=== PATIENT | male | born 1980 | race Two or more races ===

== ENCOUNTER 2017-01-05 19:43 | Emergency (ER) | payer OTHER ==
[2017-01-05 19:51] VITALS: BP 136/78; PULSE 118; TEMP 98.1; BMI 27.3
--- NOTE | 2017-01-05 19:59 | PDOC ---
*Physical Exam - Vital Signs Last Vital Signs Temp Pulse Resp BP Pulse Ox 98.1 F 118 H 18 136/78 100 01/05/17 19:48 01/05/17 19:48 01/05/17 19:48 01/05/17 19:48 01/05/17 19:48 *DC/Admit/Observation/Transfer Diagnosis at time of Disposition: Dentalgia - Discharge Dispostion Disposition: HOME Condition at time of disposition: Stable - Prescriptions Prescriptions: Naproxen [Naprosyn -] 500 mg PO BID #10 tablet - Referrals Referrals: Gabriel Karimi MD [Primary Care Provider] -
[2017-01-05] MEDS ORDERED: KETOROLAC TROMETHAMINE 60 MG/2 ML VIAL IM ONE (20:03)
[2017-01-05] MEDS ORDERED: KETOROLAC TROMETHAMINE 60 MG/2 ML VIAL ONE (20:07)
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
== END 2017-01-05 20:19 | disposition home or self-care (01) ==
LOC: FER 19:43
PROC: 3E0233Z Introduction of Anti-inflammatory into Muscle, Percutaneous Approach (ICD-10-PCS; principal; 2017-01-05)
DX: K08.89 Other specified disorders of teeth and supporting structures (principal); F17.210 Nicotine dependence, cigarettes, uncomplicated
CPT/HCPCS: 96372; 99282-25

== ENCOUNTER 2017-01-26 06:42 | Emergency (ER) | payer OTHER ==
[2017-01-26 06:53] VITALS: BMI 27.3
--- NOTE | 2017-01-26 07:04 | PDOC ---
History of Present Illness - General Chief Complaint: Weakness Stated Complaint: WEAK AND DROWSY Time Seen by Provider: 01/26/17 06:59 History Source: Patient, Old Records Exam Limitations: No Limitations - History of Present Illness Initial Comments: 01/26/17 07:08 36-year-old male with no significant past medical history presents to the emergency Department with complaints of generalized weakness and drowsiness since this morning when he woke up. The patient says that he normally gets up at 5 AM and goes to the gym however this morning he was "unable to get out of bed" and slept for an additional hour. He has no other complaints. He was able to eat breakfast. He denies coughing, sneezing, runny nose, abdominal pain, nausea, vomiting, diarrhea, sore throat. The patient states that he got a flu shot this year and has had no sick contacts. Past History - Travel Traveled outside of the country in the last 30 days: No - Past Medical History Allergies/Adverse Reactions: Allergies Allergy/AdvReac Type Severity Reaction Status Date / Time No Known Allergies Allergy Verified 01/26/17 06:44 Home Medications: Ambulatory Orders No Home Medications 0 dose .ROUTE UTDICT 04/07/13 Anemia: No Asthma: No Cancer: No Cardiac Disorders: No Hx Myocardial Infarction: No CVA: No COPD: No CHF: No DVT: No Dementia: No Diabetes: No Dialysis: No GI Disorders: No Disorders: No HTN: No Hypercholesterolemia: No HIV: No Kidney Stones: No Liver Disease: No Psychiatric Problems: No Suicide Attempt (Hx): No Seizures: No Thyroid Disease: No Lung CA: No Other medical history: DENIES - Immunization History Immunization Up to Date: Yes - Psycho/Social/Smoking Cessation Hx Anxiety: No Suicidal Ideation: No Smoking Status: No Smoking History: Current every day smoker Have you smoked in the past 12 months: Yes Number of Cigarettes Smoked Daily: 20 Information on smoking cessation initiated: Yes 'Breaking Loose' booklet given: 12/29/16 Hx Alcohol Use: No Drug/Substance Use Hx: No Substance Use Type: None Hx Substance Use Treatment: No Review of Systems - Review of Systems Able to Perform ROS?: Yes Is the patient limited Turkish proficient: No Constitutional: Yes: Weakness HEENTM: No: Symptoms Reported, See HPI, Eye Pain, Blurred Vision, Tearing, Recent change in vision, Double Vision, Cataracts, Ear Pain, Ocular Prothesis, Ear Discharge, Nose Pain, Nose Congestion, Tinnitus, Nose Bleeding, Hearing Loss , Throat Pain, Throat Swelling, Mouth Pain, Dental Problems, Difficulty Swallowing, Mouth Swelling, Other Respiratory: No: Symptoms reported, See HPI, Cough, Orthopnea, Shortness of Breath, SOB with Exertion, SOB at Rest, Stridor, Wheezing, Productive cough, Hemoptysis, Other Cardiac (ROS): No: Symptoms Reported, See HPI, Chest Pain, Edema, Irregular Heart Rate, Lightheadedness, Palpitations, Syncope, Chest Tightness, Other ABD/GI: No: Symptoms Reported, See HPI, Abdominal Distended, Abd. Pain w/ defecation, Blood Streaked Bowels, Constipated, Diarrhea, Difficulty Swallowing , Nausea, Poor Appetite, Poor Fluid Intake, Rectal Bleeding, Vomiting, Indigestion, Abdominal cramping, Tarry Stools, Other : No: Symptoms Reported, See HPI, Burning, Dysuria, Discharge, Frequency, Flank Pain, Hematuria, Incontinence, Pain, Urgency, Testicular Mass, Testicular Swelling, Lesions, Testicular Pain, Other Musculoskeletal: Yes: Muscle Weakness Integumentary: No: Symptoms Reported, See HPI, Bruising, Change in Color, Change in Hair/Nails, Dryness, Erythema, Flushing, Lesions, Lumps, Pallor, Pruritus, Rash, Sweating, Other Neurological: No: Symptoms reported, See HPI, Headache, Numbness, Paresthesia, Pre-Existing Deficit, Seizure, Tingling, Tremors, Weakness, Unsteady Gait, Ataxia, Dizziness, Other Psychiatric: No: Anxiety, Depression, Frequent Crying, Stressors, Sleep Pattern Change, Emotional Problems, Mood Swings, Change in Appetite, Other *Physical Exam - Vital Signs Last Vital Signs Temp Pulse Resp BP Pulse Ox 99.7 F H 110 H 16 113/58 96 01/26/17 06:47 01/26/17 06:47 01/26/17 06:47 01/26/17 06:47 01/26/17 06:47 - Physical Exam Comments: 01/26/17 07:10 GENERAL: Well developed, well nourished. Awake and alert. No acute distress. HEENT: Normocephalic, atraumatic. PERRLA, EOMI. No conjunctival pallor. Sclera are non- icteric. Moist mucous membranes. Oropharynx is clear. NECK: Supple. Full ROM. No JVD. No lymphadenopathy. CARDIOVASCULAR: Regular rate and rhythm. No murmurs, rubs, or gallops. Distal pulses are 2+ and symmetric. PULMONARY: No evidence of respiratory distress. Lungs clear to auscultation bilaterally. No wheezing, rales or rhonchi. ABDOMINAL: Soft. Non-tender. Non-distended. No rebound or guarding. No organomegaly. Normoactive bowel sounds. MUSCULOSKELETAL Normal range of motion at all joints. No bony deformities or tenderness. No CVA tenderness. EXTREMITIES: No cyanosis. No clubbing. No edema. No calf tenderness. SKIN: Warm and dry. Normal capillary refill. No rashes. No jaundice. NEUROLOGICAL: Alert, awake, appropriate. Cranial nerves 2-12 intact. Grossly non-focal exam. PSYCHIATRIC: Cooperative. Good eye contact. Appropriate mood and affect. ED Treatment Course - LABORATORY CBC & Chemistry Diagram: 01/26/17 07:15 01/26/17 07:15 Medical Decision Making - Medical Decision Making 01/26/17 07:10 36-year-old male with no significant past medical history with a complaint of one day of generalized weakness; the patient is febrile and tachycardic. Differential diagnosis includes but is not limited to: Influenza, viral URI, viral syndrome, dehydration, electrolyte abnormality, toxic/metabolic derangement, anemia, ACS. Plan: 1. Labs 2. EKG 3. Antipyretics 4. IV fluids for hydration 5. Urine 6. Influenza PCR 7. Observe and reevaluate 01/26/17 09:46 Addendum: All labs were reviewed and are noted in the EMR. The lab results were discussed with the patient. He was given 1 L of IV fluids and feels improved. Influenza A and B PCR are negative. We'll discharge home. I have advised the patient to follow-up with his primary care physician within one week and to return to the emergency department if his symptoms persist, worsen, or new symptoms arise. *DC/Admit/Observation/Transfer Diagnosis at time of Disposition: Weakness, Fever - Discharge Dispostion Disposition: HOME Condition at time of disposition: Stable Admit: No - Patient Instructions Printed Discharge Instructions: DI for Viral Syndrome Additional Instructions: You likely have a viral syndrome/influenza. Your influenza A and B swab was negative. You may take Tylenol or Motrin for your fever. Please follow-up with your primary care physician within one week. You may return to the emergency department if your symptoms persist, worsen, or new symptoms arise.
[2017-01-26] MEDS ORDERED: IBUPROFEN 400 MG TABLET (FP) PO ONE ×2 (07:05→07:19)
[2017-01-26] MEDS ORDERED: SODIUM CHLORIDE 1,000 ML IV STA (07:19)
[2017-01-26 07:47] LABS: BASOPHIL 2.1 % (0-2.0); MCH 29.9 pg (25.7-33.7); MEAN CELL VOLUME 85.4 fl (80-96); MEAN PLT VOLUME 9.7 fl (7.5-11.1); NEUTROPHILS 85.5 % (42.8-82.8); PLATELET COUNT 149 K/MM3 (134-434); RDW 11.5 % (11.9-15.9); WHITE BLOOD COUNT 5.7 K/mm3 (4.0-10.0)
[2017-01-26 08:26] LABS: URINE APPEARANCE Clear; URINE BILIRUBIN Negative (NEGATIVE); URINE GLUCOSE (UA) Negative (NEGATIVE); URINE KETONE Negative (NEGATIVE); URINE LEUK ESTERASE Negative (NEGATIVE); URINE NITRITE Negative (NEGATIVE); URINE PROTEIN Negative (NEGATIVE); URINE UROBILINOGEN 0.2 E.U/dl (0.2-1.0)
[2017-01-26 08:27] LABS: URINE BLOOD 1+ (NEGATIVE); URINE COLOR YELLOW
[2017-01-26 08:28] LABS: URINE BACTERIA FEW /hpf (NEGATIVE); URINE WBC 0-3 (3-5)
[2017-01-26 08:56] LABS: ALBUMIN 4.2 g/dl (3.5-5.0); ALK PHOS 61 U/L (32-92); ANION GAP 10 (8-16); BILIRUBIN,TOTAL 0.4 mg/dl (0.2-1.0); CALCIUM 9.3 mg/dl (8.4-10.2); CO2 25 mmol/L (22-28); CREATININE 0.8 mg/dl (0.6-1.3); GLUCOSE,RANDOM 153 mg/dl (74-106); SGOT/AST 32 U/L (10-42); SGPT/ALT 30 U/L (10-40); TOT PROT 6.7 g/dl (6.4-8.3)
[2017-01-26 09:23] LABS: CK MB 4.5 ng/ml (0.3-4.0); TROPONIN I (DFP) < 0.03 ng/ml (0.03-0.50)
[2017-01-26 09:25] LABS: CPK(DFH) 337 IU/L (38-174)
--- NOTE | 2017-01-26 09:29 | EKG ---
Test Reason : Blood Pressure : / mmHG Vent. Rate : 108 BPM Atrial Rate : 108 BPM P-R Int : 166 ms QRS Dur : 084 ms QT Int : 300 ms P-R-T Axes : 063 076 051 degrees QTc Int : 402 ms SINUS TACHYCARDIA OTHERWISE NORMAL ECG NO PREVIOUS ECGS AVAILABLE Confirmed by DEANNE SHETTY MD ([id number]) on 01/26/2017 9:29:20 AM Referred By: MD YOUSSEF Confirmed By:DEANNE SHETTY MD
[2017-01-26 09:52] VITALS: BP 120/68; PULSE 85; TEMP 98.3
== END 2017-01-26 09:52 | disposition home or self-care (01) ==
LOC: FER 06:42
PROC: 3E0337Z Introduction of Electrolytic and Water Balance Substance into Peripheral Vein, Percutaneous Approach (ICD-10-PCS; principal; 2017-01-26)
DX: R53.1 Weakness (principal); R50.9 Fever, unspecified; F17.210 Nicotine dependence, cigarettes, uncomplicated
CPT/HCPCS: 36415; 80053; 81003; 81015; 82550; 82553; 84484; 85025; 87804; 93005; 96360; 99283-25

== ENCOUNTER 2017-01-31 22:32 | Emergency (ER) | payer OTHER ==
[2017-01-31 22:38] VITALS: BP 120/75; PULSE 85; TEMP 98.1; BMI 28.1
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
[2017-01-31] MEDS ORDERED: PANTOPRAZOLE 40 MG TABLET (FP) PO ONE (23:03)
[2017-01-31] MEDS ORDERED: PANTOPRAZOLE 40 MG TABLET (FP) ONE (23:04)
== END 2017-01-31 23:13 | disposition home or self-care (01) ==
LOC: FER 22:32
DX: M25.561 Pain in right knee (principal); M25.562 Pain in left knee; K21.9 Gastro-esophageal reflux disease without esophagitis; F17.210 Nicotine dependence, cigarettes, uncomplicated; V43.52XA Car driver injured in collision with other type car in traffic accident, initial encounter; Y93.89 Activity, other specified; Y92.410 Unspecified street and highway as the place of occurrence of the external cause
CPT/HCPCS: 73560-TC-LT; 73560-TC-RT; 99281-25

== ENCOUNTER 2017-07-10 09:38 | Emergency (ER) | payer OTHER ==
[2017-07-10 09:51] VITALS: BP 120/83; PULSE 69; TEMP 98; BMI 26.6
--- NOTE | 2017-07-10 10:08 | PDOC ---
Attending Attestation - Resident Resident Name: Nino Cook - ED Attending Attestation I have performed the following: I have examined & evaluated the patient, The case was reviewed & discussed with the resident, I agree w/resident's findings & plan, Exceptions are as noted - HPI HPI: 07/10/17 10:16 Agree with the resident's HPI as documented in the electronic medical record. - Physicial Exam PE: 07/10/17 10:16 Agree with the resident's physical examination as documented in the electronic medical record. - Medical Decision Making 07/10/17 10:16 37-year-old male with no past medical history presents the emergency Department with complaints of 3 day history of atraumatic pain to his right ankle in the region of the Achilles tendon. Likely diagnosis is tendinitis as there is no bony tenderness and the pain is reproduced with dorsiflexion of the ankle. Per Ash ankle rules plain films are not clinically indicated. Plan: 1. NSAIDs as needed for pain 2. Ice to the area 3. Follow-up with PCP and return to the emergency department if symptoms persist , worsen, or new symptoms arise.
--- NOTE | 2017-07-10 10:18 | PDOC ---
History of Present Illness - General Chief Complaint: Pain, Acute Stated Complaint: BACK OF RIGHT ANKLE PAIN Time Seen by Provider: 07/10/17 09:44 - History of Present Illness Initial Comments: 07/10/17 10:18 Mr. Da Silva is a 37 yo male with no significant PMH who presents with a 3 day history of pain to the back of his R ankle. He reports the pain is worse when lying down and that he cannot recall and insult or injury to the ankle. He says that the pain is exacerbated as well by bearing weight on the joint. [place]: NKDA Soc: 1ppd for 20 years Past History - Past Medical History Allergies/Adverse Reactions: Allergies Allergy/AdvReac Type Severity Reaction Status Date / Time No Known Allergies Allergy Verified 07/10/17 09:39 Home Medications: Ambulatory Orders Tramadol HCl/Acetaminophen [Ultracet Tablet] 1 each PO TID PRN #10 tablet MDD 3 tabs 01/31/17 Anemia: No Asthma: No Cancer: No Cardiac Disorders: No CVA: No COPD: No CHF: No DVT: No Dementia: No Diabetes: No Dialysis: No GI Disorders: No Disorders: No HTN: No Hypercholesterolemia: No HIV: No Kidney Stones: No Liver Disease: No Psychiatric Problems: No Suicide Attempt (Hx): No Seizures: No Thyroid Disease: No Lung CA: No - Immunization History Immunization Up to Date: Yes - Psycho/Social/Smoking Cessation Hx Anxiety: No Suicidal Ideation: No Smoking Status: No Smoking History: Current every day smoker Have you smoked in the past 12 months: Yes Number of Cigarettes Smoked Daily: 20 Information on smoking cessation initiated: Yes 'Breaking Loose' booklet given: 12/29/16 Hx Alcohol Use: No Drug/Substance Use Hx: No Substance Use Type: None Hx Substance Use Treatment: No Review of Systems - Review of Systems Comments:: 07/10/17 10:20 GENERAL/CONSTITUTIONAL: No fever or chills. No weakness. HEAD, EYES, EARS, NOSE AND THROAT: No change in vision. No ear pain or discharge. No sore throat. CARDIOVASCULAR: No chest pain or shortness of breath RESPIRATORY: No cough, wheezing, or hemoptysis. GASTROINTESTINAL: No nausea, vomiting, diarrhea or constipation. GENITOURINARY: No dysuria, frequency, or change in urination. MUSCULOSKELETAL: +3 day history of pain to the back R ankle. Pain worse with weight bearing or lying down. SKIN: No rash NEUROLOGIC: No headache, vertigo, loss of consciousness, or change in strength/ sensation. ENDOCRINE: No increased thirst. No abnormal weight change HEMATOLOGIC/LYMPHATIC: No anemia, easy bleeding, or history of blood clots. ALLERGIC/IMMUNOLOGIC: No hives or skin allergy. *Physical Exam - Vital Signs Last Vital Signs Temp Pulse Resp BP Pulse Ox 98 F 69 16 120/83 100 07/10/17 09:39 07/10/17 09:39 07/10/17 09:39 07/10/17 09:39 07/10/17 09:39 - Physical Exam Comments: 07/10/17 10:24 GENERAL: Awake, alert, and fully oriented, in no acute distress HEAD: No signs of trauma, normocephalic, atraumatic EYES: PERRLA, EOMI, sclera anicteric, conjunctiva clear ENT: Auricles normal inspection, hearing grossly normal, nares patent, oropharynx clear without exudates. Moist mucosa NECK: Normal ROM, supple, no lymphadenopathy, JVD, or masses LUNGS: No distress, speaks full sentences, clear to auscultation bilaterally HEART: Regular rate and rhythm, normal S1 and S2, no murmurs, rubs or gallops, peripheral pulses normal and equal bilaterally. ABDOMEN: Soft, nontender, normoactive bowel sounds. No guarding, no rebound. No masses EXTREMITIES: +R ankle ROM somewhat limited by pain. Strength in tact. Pinpoint/ dull differentiation in tact. Normal inspection, no edema. No clubbing or cyanosis. NEUROLOGICAL: Cranial nerves II through XII grossly intact. Normal speech, normal gait, no focal sensorimotor deficits SKIN: Warm, Dry, normal turgor, no rashes or lesions noted. Medical Decision Making - Medical Decision Making 07/10/17 10:25 Mr. Da Silva presents with 3 days of ankle pain. No history of trauma or sprain. [place] rules considered and x-ray not indicated as no maleolar pain. Toradol 60 IM given and will recommend 800 Ibuprofen over the counter as needed for pain. *DC/Admit/Observation/Transfer Diagnosis at time of Disposition: Tendinitis of right ankle - Discharge Dispostion Disposition: HOME Condition at time of disposition: Stable - Patient Instructions Printed Discharge Instructions: DI for Tendinitis Additional Instructions: Take Ibuprofen 800 for pain. Ice ankle 20 minutes on / 20 minutes off as needed to reduce inflammation. Please return if any increase in pain, fever, or other concerning symptoms. - Attestations Physician Attestion: 07/10/17 10:28 I, Dr. Nino Cook, attest that this document has been prepared under my direction and personally reviewed by me in its entirety. I further attest, that it accurately reflects all work, treatment, procedures and medical decision -making performed by me.
[2017-07-10] MEDS ORDERED: KETOROLAC TROMETHAMINE 60 MG/2 ML VIAL IM ONE (10:19)
[2017-07-10] MEDS ORDERED: KETOROLAC TROMETHAMINE 60 MG/2 ML VIAL ONE (10:21)
== END 2017-07-10 10:34 | disposition home or self-care (01) ==
LOC: FER 09:38
PROC: 3E0233Z Introduction of Anti-inflammatory into Muscle, Percutaneous Approach (ICD-10-PCS; principal; 2017-07-10)
DX: M77.9 Enthesopathy, unspecified (principal); F17.210 Nicotine dependence, cigarettes, uncomplicated
CPT/HCPCS: 96372; 99282-25

== ENCOUNTER 2017-07-27 22:39 | Emergency (ER) | payer OTHER ==
--- NOTE | 2017-07-27 22:41 | PDOC ---
History of Present Illness - General Chief Complaint: Pain Stated Complaint: R UPPER JAW PAIN Time Seen by Provider: 07/27/17 22:41 History Source: Patient Exam Limitations: No Limitations - History of Present Illness Initial Comments: 07/27/17 22:52 This is a 37-year-old male who comes in complaining of pain and swelling in his right upper jaw area. Patient said pain began this afternoon approximately 9 hours prior to coming in. Patient does have a dentist he can follow-up within the morning. Patient denies any fever or chills. PAST MEDICAL HISTORY: no significant history PAST SURGICAL HISTORY: no significant history FAMILY HISTORY: no pertinant history SOCIAL HISTORY: Pt lives with family and is employed. MEDICATIONS: reviewed ALLERGIES: As per nursing notes Review of Systems General: No fevers or chills, no weakness, no weight loss HEENT: No change in vision. No sore throat,. No ear pain, dental/mouth pain as per history of present illness CardioVascular: No chest pain or shortness of breath Respiratory:No cough, or wheezing. Gastrointestinal: no nausea, vomitting, diarrhea or constipation, No rectal bleeding Genitourinary: No dysuria, hematuria, or frequency Musculoskeletal: No joint or muscle pain or swelling Neurologic: No headache, vertigo, dizziness or loss of consciousness Psychiatric: nor depression Skin: No rashes or easy bruising Endocrine: no increased thirst or abnormal weight change Allergic: no skin or latex allergy All other systems reviewed and normal GENERAL: The patient is awake, alert, and fully oriented, in no acute distress. HEAD: Normal with no signs of trauma. Mouth: There is some swelling and erythema of the periodontal tissues lateral to the upper molars. There is some poor condition of both the upper and lower molars. There is no palpable collection or abscess. EYES: Pupils equal, round and reactive to light, extraocular movements intact, sclera anicteric, conjunctiva clear. EXTREMITIES: Normal range of motion, no edema. NEUROLOGICAL: Normal speech, normal gait. PSYCH: Normal mood, normal affect. SKIN: Warm, Dry, normal turgor, no rashes or lesions noted. Assessment and plan: This is a 37-year-old male who comes in with a periodontal infection secondary to poor dentition. Patient given a shot of Toradol for the pain and started on clindamycin for the infection. Patient will follow-up with his dentist in the morning. Past History - Past Medical History Allergies/Adverse Reactions: Allergies Allergy/AdvReac Type Severity Reaction Status Date / Time No Known Allergies Allergy Verified 07/10/17 09:39 Home Medications: Ambulatory Orders Tramadol HCl/Acetaminophen [Ultracet Tablet] 1 each PO TID PRN #10 tablet MDD 3 tabs 01/31/17 Ibuprofen 800 mg PO PRN #30 tablet 07/10/17 Clindamycin [Cleocin -] 150 mg PO Q8H #21 capsule 07/27/17 Naproxen [Naprosyn -] 500 mg PO BID #14 tablet 07/27/17 Anemia: No Asthma: No Cancer: No Cardiac Disorders: No CVA: No COPD: No CHF: No DVT: No Dementia: No Diabetes: No Dialysis: No GI Disorders: No Disorders: No HTN: No Hypercholesterolemia: No HIV: No Kidney Stones: No Liver Disease: No Psychiatric Problems: No Suicide Attempt (Hx): No Seizures: No Thyroid Disease: No Lung CA: No - Immunization History Immunization Up to Date: Yes - Psycho/Social/Smoking Cessation Hx Anxiety: No Suicidal Ideation: No Smoking Status: No Smoking History: Current every day smoker Have you smoked in the past 12 months: Yes Number of Cigarettes Smoked Daily: 20 'Breaking Loose' booklet given: 12/29/16 Hx Alcohol Use: No Drug/Substance Use Hx: No Substance Use Type: None Hx Substance Use Treatment: No *DC/Admit/Observation/Transfer Diagnosis at time of Disposition: Dentalgia, Infection of mouth - Discharge Dispostion Disposition: HOME Condition at time of disposition: Good - Patient Instructions Additional Instructions: For the infection take clindamycin 1 tablet 4 times a day for the next 7 days. For the pain you can take Tylenol or Motrin as directed on the bottle or if you need something stronger I sent a prescription for naproxen to your pharmacy U can take one tablet twice a day as needed take it with food do not take on an empty stomach. Call your dentist in the morning and follow-up with your dentist in the morning regarding your dental problems. Return to the emergency department immediately with ANY new, persistent or worsening symptoms. Continue any medications as previously prescribed by your physician. Thank you for coming to the Emergency Department today for your care. It was a pleasure to see you today. Please note that your evaluation is INCOMPLETE until you follow-up with your doctor.
[2017-07-27 22:47] VITALS: BP 107/68; PULSE 86; TEMP 98.3; BMI 24.2
[2017-07-27] MEDS ORDERED: KETOROLAC TROMETHAMINE 60 MG/2 ML VIAL IM ONE (22:54)
[2017-07-27] MEDS ORDERED: CLINDAMYCIN HCL 300 MG CAPSULE PO ONE (22:55)
[2017-07-27] MEDS ORDERED: KETOROLAC TROMETHAMINE 60 MG/2 ML VIAL ONE (22:58)
[2017-07-27] MEDS ORDERED: CLINDAMYCIN HCL 150 MG CAPSULE (FP) ONE (23:02)
== END 2017-07-27 23:12 | disposition home or self-care (01) ==
LOC: FER 22:39
PROC: 3E0233Z Introduction of Anti-inflammatory into Muscle, Percutaneous Approach (ICD-10-PCS; principal; 2017-07-27)
DX: K08.89 Other specified disorders of teeth and supporting structures (principal); F17.210 Nicotine dependence, cigarettes, uncomplicated
CPT/HCPCS: 96372; 99281-25

== ENCOUNTER 2017-10-27 19:43 | Emergency (ER) | payer OTHER ==
[2017-10-27 20:00] VITALS: BP 130/83; PULSE 87; TEMP 97.6; BMI 29.0
[2017-10-27] MEDS ORDERED: IBUPROFEN 600 MG TABLET (FP) PO ONE (20:09)
--- NOTE | 2017-10-27 20:09 | PDOC ---
History of Present Illness - History of Present Illness Initial Comments: 10/27/17 20:09 The patient is a 37 year old male, with no significant past medical history, who presents to the emergency department with progressive onset of runny nose, productive cough, and fever today. He denies having his flu vaccine this season , because he got it the last two times and still got sick. He denies chest pain, shortness of breath, headache and dizziness. He denies chills, nausea, vomit, diarrhea and constipation. He denies dysuria, frequency, urgency and hematuria. PAST MEDICAL HISTORY: no significant history PAST SURGICAL HISTORY: no significant history FAMILY HISTORY: no pertinent history SOCIAL HISTORY: Pt lives with family and is employed. MEDICATIONS: reviewed ALLERGIES: As per nursing notes Adult ROS General: (+) subjective fevers, no chills, no weakness, no weight loss HEENT: (+) runny nose. No change in vision. No sore throat,. No ear pain CardioVascular: No chest pain or shortness of breath Respiratory:(+) productive cough, No wheezing. Gastrointestinal: no nausea, vomiting, diarrhea or constipation, No rectal bleeding Genitourinary: No dysuria, hematuria, or frequency Musculoskeletal: No joint or muscle pain or swelling Neurologic: (+) headache, No vertigo, dizziness or loss of consciousness Psychiatric: nor depression Skin: No rashes or easy bruising Endocrine: no increased thirst or abnormal weight change Allergic: no skin or latex allergy All other systems reviewed and normal Adult Exam: GENERAL: The patient is awake, alert, and fully oriented, in no acute distress. HEAD: Normal with no signs of trauma. EYES: Pupils equal reactive and round, extraocular motion intact THROAT: (+) Mild erythema to posterior oral pharynx NOSE: (+) Nasal congestion EXTREMITIES: Normal range of motion, no edema. NEUROLOGICAL: Normal speech, normal gait. PSYCH: Normal mood, normal affect. SKIN: Warm, Dry, normal turgor, no rashes or lesions noted. <Namrata Covarrubias - Last Filed: 10/27/17 20:09> - General History Source: Patient Exam Limitations: No Limitations - History of Present Illness Initial Comments: 10/27/17 20:30 A portion of this note was documented by scribe services under my direction. I have reviewed the details of the note, within reason, and agree with the documentation. The case summary and management plan written by me. Assessment and plan: This is a 37-year-old male who comes in complaining of one day of upper respiratory tract type symptoms. On exam patient was noted to have some nasal congestion and some mild erythema of his posterior oropharynx. Patient's exam was otherwise normal. Patient was afebrile here and his vitals in the emergency room were normal Patient was reassured that this was most likely a viral upper respiratory tract syndrome and it would run its course and resolved without need for any antibiotics or further intervention. Patient was given Motrin here in the emergency room Patient did not have a thermometer so was told to get a thermometer so we could monitor his temperature. Patient was discharged home he does have a primary care doctor he can follow-up with. <Shama Lester I - Last Filed: 10/27/17 20:31> - General Chief Complaint: Cold Symptoms Stated Complaint: FEVER/COLD Time Seen by Provider: 10/27/17 19:46 Past History <Namrata Covarrubias - Last Filed: 10/27/17 20:09> - Past Medical History Anemia: No Asthma: No Cancer: No Cardiac Disorders: No CVA: No COPD: No CHF: No DVT: No Dementia: No Diabetes: No Dialysis: No GI Disorders: No Disorders: No HTN: No Hypercholesterolemia: No Kidney Stones: No Liver Disease: No Psychiatric Problems: No Seizures: No Thyroid Disease: No Lung CA: No Other medical history: CHRONIC NECK/ARM PAIN - Immunization History Immunization Up to Date: Yes - Suicide/Smoking/Psychosocial Hx Smoking Status: No Smoking History: Current every day smoker Have you smoked in the past 12 months: Yes Number of Cigarettes Smoked Daily: 20 Information on smoking cessation initiated: Yes 'Breaking Loose' booklet given: 12/29/16 Hx Alcohol Use: No Drug/Substance Use Hx: No Substance Use Type: None Hx Substance Use Treatment: No <Shama Lester I - Last Filed: 10/27/17 20:31> - Past Medical History Allergies/Adverse Reactions: Allergies Allergy/AdvReac Type Severity Reaction Status Date / Time No Known Allergies Allergy Verified 07/10/17 09:39 Home Medications: Ambulatory Orders Tramadol HCl/Acetaminophen [Ultracet Tablet] 1 each PO TID PRN #10 tablet MDD 3 tabs 01/31/17 Ibuprofen 800 mg PO PRN #30 tablet 07/10/17 Naproxen [Naprosyn -] 500 mg PO BID #14 tablet 07/27/17 *Physical Exam - Vital Signs Last Vital Signs Temp Pulse Resp BP Pulse Ox 97.6 F 87 16 130/83 97 10/27/17 19:49 10/27/17 19:49 10/27/17 19:49 10/27/17 19:49 10/27/17 19:49 <Namrata Covarrubias - Last Filed: 10/27/17 20:09> - Vital Signs Last Vital Signs Temp Pulse Resp BP Pulse Ox 97.6 F 87 16 130/83 97 10/27/17 19:49 10/27/17 19:49 10/27/17 19:49 10/27/17 19:49 10/27/17 19:49 <Shama Lester I - Last Filed: 10/27/17 20:31> *DC/Admit/Observation/Transfer <Namrata Covarrubias - Last Filed: 10/27/17 20:09> - Discharge Dispostion Admit: No <Shama Lester I - Last Filed: 10/27/17 20:31> Diagnosis at time of Disposition: URI (upper respiratory infection) Qualifiers: URI type: unspecified URI Qualified Code(s): J06.9 - Acute upper respiratory infection, unspecified - Discharge Dispostion Disposition: HOME Condition at time of disposition: Stable - Referrals Referrals: Eliza Queen MD [Primary Care Provider] - - Patient Instructions Printed Discharge Instructions: DI for Viral Upper Respiratory Infection -- Adult, DI for Common Cold Additional Instructions: 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 Take as discussed with you by the emergency room doctor. In addition to that get a thermometer so that you can monitor your temperature. If you have a fever you should not go to work otherwise if you do not have a fever it is okay to go to work but use good handwashing. Return to the emergency department immediately with ANY new, persistent or worsening symptoms. Continue any medications as previously prescribed by your physician. You should follow up with your primary doctor as soon as possible regarding today's emergency department visit. . Please make sure your doctor reviews the results of your emergency evaluation. Thank you for coming to the Emergency Department today for your care. It was a pleasure to see you today. Please note that your evaluation is INCOMPLETE until you follow-up with your doctor. - Post Discharge Activity
== END 2017-10-27 20:13 | disposition home or self-care (01) ==
LOC: FER 19:43
DX: J06.9 Acute upper respiratory infection, unspecified (principal); F17.210 Nicotine dependence, cigarettes, uncomplicated
CPT/HCPCS: 99281-25

== ENCOUNTER 2017-12-08 21:08 | Emergency (ER) | payer OTHER ==
[2017-12-08 21:11] VITALS: BP 117/61; PULSE 80; TEMP 97.5; BMI 28.1
[2017-12-08] MEDS ORDERED: KETOROLAC TROMETHAMINE 60 MG/2 ML VIAL ONE (21:29)
[2017-12-08] MEDS ORDERED: KETOROLAC TROMETHAMINE 60 MG/2 ML VIAL IM ONE (21:31)
--- NOTE | 2017-12-08 21:36 | PDOC ---
History of Present Illness - General Chief Complaint: Pain Stated Complaint: SORE THROAT/LT ELBOW PAIN Time Seen by Provider: 12/08/17 21:10 History Source: Patient Exam Limitations: No Limitations - History of Present Illness Initial Comments: 12/08/17 21:32 This is a 37-year-old male who is a frequent visitor to this emergency department. Patient has a history of chronic left elbow pain for which she is been told he needs to see a pain specialist. The patient comes in complaining of exacerbation of his chronic elbow pain. Patient had an MRI today and has an appointment with a pain specialist for next week. In addition to that patient is complaining of a sore throat but denies any headache, cough, congestion, nausea, shortness of breath or any other associated symptoms. Patient is noted to be a smoker. Patient is otherwise healthy and denies any other complaints at this time. PAST MEDICAL HISTORY: no significant history PAST SURGICAL HISTORY: no significant history FAMILY HISTORY: no pertinant history SOCIAL HISTORY: Pt lives with family and is employed. MEDICATIONS: reviewed ALLERGIES: As per nursing notes Review of Systems General: No fevers or chills, no weakness, no weight loss HEENT: No change in vision. + sore throat,. No ear pain CardioVascular: No chest pain or shortness of breath Respiratory:No cough, or wheezing. Gastrointestinal: no nausea, vomitting, diarrhea or constipation, No rectal bleeding Genitourinary: No dysuria, hematuria, or frequency Musculoskeletal: Left elbow pain as per history of present illness Neurologic: No headache, vertigo, dizziness or loss of consciousness Psychiatric: nor depression Skin: No rashes or easy bruising Endocrine: no increased thirst or abnormal weight change Allergic: no skin or latex allergy All other systems reviewed and normal Exam: General: Well-nourished well-developed individual, no acute distress HEENT: Throat there is some mild erythema of the posterior oropharynx there is no exudate, tonsils are normal. Neck: Supple, no meningeal signs, no lymphadenopathy Eyes::Pupils equal reactive and round, extraocular motion intact Extremities: Warm, dry, no cyanosis, clubbing, or edema Left elbow, there is no erythema, swelling, ecchymosis or deformity. Patient complains of tenderness easily on palpation. There is decreased range of motion secondary to discomfort. Neurovascular distal is intact. Skin: No rashes Neuro: Alert and oriented x3, CN II - XII intact, nonfocal exam with normal strength, normal sensation, normal reflexes, normal gait, Psych: Normal mood and affect Assessment and plan: This is a 37-year-old male with chronic elbow pain with acute exacerbation. Patient was given Toradol for the pain and told he needs to keep his appointment with a pain specialist. In addition patient has a viral pharyngitis. Patient was told to take Tylenol and [id number] lozenges for the pain. Patient discharged will follow-up with his doctors as needed Past History - Past Medical History Allergies/Adverse Reactions: Allergies Allergy/AdvReac Type Severity Reaction Status Date / Time No Known Allergies Allergy Verified 07/10/17 09:39 Home Medications: Ambulatory Orders Tramadol HCl/Acetaminophen [Ultracet Tablet] 1 each PO TID PRN #10 tablet MDD 3 tabs 01/31/17 Ibuprofen 800 mg PO PRN #30 tablet 07/10/17 Naproxen [Naprosyn -] 500 mg PO BID #14 tablet 07/27/17 Anemia: No Asthma: No Cancer: No Cardiac Disorders: No CVA: No COPD: No CHF: No DVT: No Dementia: No Diabetes: No Dialysis: No GI Disorders: No Disorders: No HTN: No Hypercholesterolemia: No Kidney Stones: No Liver Disease: No Psychiatric Problems: No Seizures: No Thyroid Disease: No Lung CA: No - Immunization History Immunization Up to Date: Yes - Suicide/Smoking/Psychosocial Hx Smoking Status: No Smoking History: Current every day smoker Have you smoked in the past 12 months: Yes Number of Cigarettes Smoked Daily: 20 Information on smoking cessation initiated: Yes 'Breaking Loose' booklet given: 12/08/17 Hx Alcohol Use: No Drug/Substance Use Hx: No Substance Use Type: None Hx Substance Use Treatment: No *Physical Exam - Vital Signs Last Vital Signs Temp Pulse Resp BP Pulse Ox 97.5 F L 80 16 117/61 97 12/08/17 21:10 12/08/17 21:10 12/08/17 21:10 12/08/17 21:10 12/08/17 21:10 *DC/Admit/Observation/Transfer Diagnosis at time of Disposition: Acute viral pharyngitis, Left elbow pain - Discharge Dispostion Disposition: HOME Condition at time of disposition: Stable Admit: No - Referrals - Patient Instructions Additional Instructions: Take Tylenol or Motrin as needed for your throat pain or fevers. The addition to that you can get some [id number] throat lozenges which should help with the discomfort in your throat. Keep your appointment with your pain specialist Return to the emergency department immediately with ANY new, persistent or worsening symptoms. Continue any medications as previously prescribed by your physician. You should follow up with your primary doctor as soon as possible regarding today's emergency department visit. . Please make sure your doctor reviews the results of your emergency evaluation. Thank you for coming to the Emergency Department today for your care. It was a pleasure to see you today. Please note that your evaluation is INCOMPLETE until you follow-up with your doctor. - Post Discharge Activity
== END 2017-12-08 21:46 | disposition home or self-care (01) ==
LOC: FER 21:08
PROC: 3E0233Z Introduction of Anti-inflammatory into Muscle, Percutaneous Approach (ICD-10-PCS; principal; 2017-12-08)
DX: M25.522 Pain in left elbow (principal); J02.8 Acute pharyngitis due to other specified organisms; B97.89 Other viral agents as the cause of diseases classified elsewhere; F17.210 Nicotine dependence, cigarettes, uncomplicated
CPT/HCPCS: 99282-25

== ENCOUNTER 2018-01-23 22:25 | Emergency (ER) | payer OTHER ==
--- NOTE | 2018-01-23 22:27 | PDOC ---
History of Present Illness - General Chief Complaint: Respiratory Stated Complaint: SORE THROAT,COUGH FEVER Time Seen by Provider: 01/23/18 22:26 - History of Present Illness Initial Comments: This 37-year-old man without significant past medical history, frequent ER visits, presents with 1 day history of subjective fever and sore throat. Patient denies cough/myalgias/vomiting or diarrhea. Patient has not taken any medication for his fever/throat pain. Although he denies close contact with anyone who is had influenza recently, he does have contact with school age nieces and nephews. He does not know whether he has had strep throat as an adult. He has not had influenza vaccine this year. No recent travel Past History - Past Medical History Allergies/Adverse Reactions: Allergies Allergy/AdvReac Type Severity Reaction Status Date / Time No Known Allergies Allergy Verified 01/23/18 22:26 Home Medications: Ambulatory Orders Tramadol HCl/Acetaminophen [Ultracet Tablet] 1 each PO TID PRN #10 tablet MDD 3 tabs 01/31/17 Anemia: No Asthma: No Cancer: No Cardiac Disorders: No CVA: No COPD: No CHF: No DVT: No Dementia: No Diabetes: No Dialysis: No GI Disorders: No Disorders: No HTN: No Hypercholesterolemia: No Kidney Stones: No Liver Disease: No Psychiatric Problems: No Seizures: No Thyroid Disease: No Lung CA: No - Immunization History Immunization Up to Date: Yes - Suicide/Smoking/Psychosocial Hx Smoking Status: No Smoking History: Current every day smoker Have you smoked in the past 12 months: Yes Number of Cigarettes Smoked Daily: 20 'Breaking Loose' booklet given: 12/08/17 Hx Alcohol Use: No Drug/Substance Use Hx: No Substance Use Type: None Hx Substance Use Treatment: No Review of Systems - Review of Systems Able to Perform ROS?: Yes Comments:: 12 point review of systems is negative except for what is noted in the history of present illness *Physical Exam - Physical Exam Comments: GENERAL: Adult male, alert and oriented, in no acute distress; T 97.8 F HEAD: Normal with no signs of trauma. EYES: PERRLA, EOMI, sclera anicteric, conjunctiva clear. ENT: Ears normal, nares patent, oropharynx erythematous without exudates; no edema. Dry mucous membranes. NECK: Normal range of motion, supple without lymphadenopathy, JVD, or masses. LUNGS: Breath sounds equal, clear to auscultation bilaterally. No wheezes, and no crackles. HEART:Regular rate and rhythm, normal S1 and S2 without murmur, rub or gallop. ABDOMEN:.normal bowel sounds No guarding,tenderness or rebound.No masses No distention. EXTREMITIES: Normal range of motion, no edema. No clubbing or cyanosis. No erythema, or tenderness. NEUROLOGICAL: Cranial nerves II through XII grossly intact. Normal speech. No focal neurological deficits. MUSCULOSKELETAL: Back non-tender to palpation, no CVA tenderness SKIN: Warm, Dry, normal turgor, no rashes or lesions noted. Progress Note - Progress Note Progress Note: Ibuprofen 800 mg by mouth given to the patient for throat pain. Quick strep/throat culture sent Quick strep negative Patient will be discharged with instructions to drink plenty fluids and rest. Ibuprofen/acetaminophen/naproxen should be used as needed for fever or pain. He should return here or follow-up with his doctor if he has worsening pain or persistent high fever *DC/Admit/Observation/Transfer Diagnosis at time of Disposition: Pharyngitis, acute Qualifiers: Pharyngitis/tonsillitis etiology: unspecified etiology Qualified Code(s): J02.9 - Acute pharyngitis, unspecified - Discharge Dispostion Disposition: HOME Condition at time of disposition: Stable - Referrals - Patient Instructions Printed Discharge Instructions: DI for Pharyngitis/Tonsillopharyngitis -- Adult Additional Instructions: Rest; drink plenty of fluids Ibuprofen/naproxen/acetaminophen as needed for pain or fever Return if you have persistent high fever or severe pain not helped by pain medication Follow-up with Dr Queen within 5-7 days - Post Discharge Activity
[2018-01-23 22:31] VITALS: BP 120/75; PULSE 82; TEMP 97.5; BMI 27.3
[2018-01-23] MEDS ORDERED: IBUPROFEN 400 MG TABLET (FP) PO ONE (22:36)
== END 2018-01-23 23:35 | disposition home or self-care (01) ==
LOC: FER 22:25
DX: J02.9 Acute pharyngitis, unspecified (principal)
CPT/HCPCS: 87070; 87430; 99281-25

== ENCOUNTER 2018-09-13 20:15 | Emergency (ER) | payer OTHER ==
[2018-09-13 20:20] VITALS: BP 120/78; PULSE 75; TEMP 98.1; BMI 25.8
--- NOTE | 2018-09-13 20:36 | PDOC ---
History of Present Illness - General History Source: Patient Exam Limitations: No Limitations - History of Present Illness Initial Comments: 09/13/18 20:49 The patient is a 38 year old male, with no significant PMH, who presents to the emergency department complaining of migraines that began this morning. The patient states pain worsened throughout the day, no relief with ibuprofen. The patient states he feels better upon arrival to the the ER. The patient denies chest pain, shortness of breath,and dizziness. Denies fever, chills, nausea, vomit, diarrhea and constipation. PAST MEDICAL HISTORY: no significant history PAST SURGICAL HISTORY: no significant history FAMILY HISTORY: no pertinent history SOCIAL HISTORY: Pt lives with family and is employed. MEDICATIONS: reviewed ALLERGIES: As per nursing notes Adult ROS General: No fevers or chills, no weakness, no weight loss HEENT: No change in vision. No sore throat,. No ear pain CardioVascular: No chest pain or shortness of breath Respiratory:No cough, or wheezing. Gastrointestinal: no nausea, vomiting, diarrhea or constipation, No rectal bleeding Genitourinary: No dysuria, hematuria, or frequency Musculoskeletal: No joint or muscle pain or swelling Neurologic: + headache. No vertigo, dizziness or loss of consciousness Psychiatric: nor depression Skin: No rashes or easy bruising Endocrine: no increased thirst or abnormal weight change Allergic: no skin or latex allergy All other systems reviewed and normal Basic PE GENERAL: The patient is awake, alert, and fully oriented, in no acute distress. HEAD: Normal with no signs of trauma. EYES: Pupils equal, round and reactive to light, extraocular movements intact, sclera anicteric, conjunctiva clear. EXTREMITIES: Normal range of motion, no edema. NEUROLOGICAL: Normal speech, normal gait. PSYCH: Normal mood, normal affect. SKIN: Warm, Dry, normal turgor, no rashes or lesions noted. <Carlo,Aiskaycristian - Last Filed: 09/13/18 20:49> - General History Source: Patient Exam Limitations: No Limitations - History of Present Illness Initial Comments: 09/13/18 23:42 A portion of this note was documented by scribe services under my direction. I have reviewed the details of the note, within reason, and agree with the documentation. The case summary and management plan written by me. Assessment plan: This is a 38-year-old male who comes in complaining of a headache. Patient took medication prior to coming in by the time he got here his symptoms had nearly resolved. Patient decided he didn't want to be further evaluated and discharged. <Shama Lester I - Last Filed: 09/13/18 23:42> - General Chief Complaint: Headache Stated Complaint: HEADACHE Time Seen by Provider: 09/13/18 20:21 Past History <Hasmukh Matos - Last Filed: 09/13/18 20:49> - Past Medical History Anemia: No Asthma: No Cancer: No Cardiac Disorders: No CVA: No COPD: No CHF: No DVT: No Dementia: No Diabetes: No Dialysis: No GI Disorders: No Disorders: No HTN: No Hypercholesterolemia: No Kidney Stones: No Liver Disease: No Psychiatric Problems: No Seizures: No Thyroid Disease: No Lung CA: No - Immunization History Immunization Up to Date: Yes - Suicide/Smoking/Psychosocial Hx Smoking Status: No Smoking History: Current every day smoker Have you smoked in the past 12 months: Yes Number of Cigarettes Smoked Daily: 20 Information on smoking cessation initiated: Yes 'Breaking Loose' booklet given: 09/13/18 Hx Alcohol Use: No Drug/Substance Use Hx: No Substance Use Type: None Hx Substance Use Treatment: No <Shama Lester I - Last Filed: 09/13/18 23:42> - Past Medical History Allergies/Adverse Reactions: Allergies Allergy/AdvReac Type Severity Reaction Status Date / Time No Known Allergies Allergy Verified 01/23/18 22:26 Home Medications: Ambulatory Orders Tramadol HCl/Acetaminophen [Ultracet Tablet] 1 each PO TID PRN #10 tablet MDD 3 tabs 01/31/17 *Physical Exam - Vital Signs Last Vital Signs Temp Pulse Resp BP Pulse Ox 98.1 F 75 14 120/78 100 09/13/18 20:16 09/13/18 20:16 09/13/18 20:16 09/13/18 20:16 09/13/18 20:16 <Hasmukh Matos - Last Filed: 09/13/18 20:49> - Vital Signs Last Vital Signs Temp Pulse Resp BP Pulse Ox 98.1 F 75 14 120/78 100 09/13/18 20:16 09/13/18 20:16 09/13/18 20:16 09/13/18 20:16 09/13/18 20:16 <Shama Lester I - Last Filed: 09/13/18 23:42> *DC/Admit/Observation/Transfer - Attestations Scribe Attestion: 09/13/18 20:50 Documentation prepared by Hasmukh Matos, acting as medical center manager for Shama Lester MD. <Hasmukh Matos - Last Filed: 09/13/18 20:49> - Discharge Dispostion Decision to Admit order: No <Shama Lester I - Last Filed: 09/13/18 23:42> Diagnosis at time of Disposition: Headache Qualifiers: Headache type: unspecified Headache chronicity pattern: unspecified pattern Intractability: not intractable Qualified Code(s): R51 - Headache - Discharge Dispostion Disposition: HOME Condition at time of disposition: Good - Referrals Referrals: Eliza Queen MD [Primary Care Provider] - - Patient Instructions Additional Instructions: Tylenol as needed for pain Return to the emergency department immediately with ANY new, persistent or worsening symptoms. Continue any medications as previously prescribed by your physician. You should follow up with your primary doctor as soon as possible regarding today's emergency department visit. . Please make sure your doctor reviews the results of your emergency evaluation. Thank you for coming to the Emergency Department today for your care. It was a pleasure to see you today. Please note that your evaluation is INCOMPLETE until you follow-up with your doctor. - Post Discharge Activity
== END 2018-09-13 20:43 | disposition home or self-care (01) ==
LOC: FER 20:15
DX: R51 Headache (principal); F17.210 Nicotine dependence, cigarettes, uncomplicated
CPT/HCPCS: 99282-25

== ENCOUNTER 2018-09-29 18:15 | Emergency (ER) | payer OTHER ==
[2018-09-29 18:23] VITALS: BP 103/42; PULSE 89; TEMP 98.1; BMI 25.8
--- NOTE | 2018-09-29 18:31 | PDOC ---
History of Present Illness - General Chief Complaint: Pain Stated Complaint: TOOTH ACHE Time Seen by Provider: 09/29/18 18:26 History Source: Patient Exam Limitations: No Limitations - History of Present Illness Initial Comments: 09/29/18 18:27 38 yo male here c/o dental pain. started this am while brushing his teeth. upper posterior molar. feels like it is swollen inside. no f/c no nv no trismusl 09/29/18 18:42 Past History - Past Medical History Allergies/Adverse Reactions: Allergies Allergy/AdvReac Type Severity Reaction Status Date / Time No Known Allergies Allergy Verified 01/23/18 22:26 Home Medications: Ambulatory Orders Ibuprofen [Motrin -] 600 mg PO TID PRN #90 tablet MDD 3 09/29/18 Anemia: No Asthma: No Cancer: No Cardiac Disorders: No CVA: No COPD: No CHF: No DVT: No Dementia: No Diabetes: No Dialysis: No GI Disorders: No Disorders: No HTN: No Hypercholesterolemia: No Kidney Stones: No Liver Disease: No Psychiatric Problems: No Seizures: No Thyroid Disease: No Lung CA: No - Immunization History Immunization Up to Date: Yes - Suicide/Smoking/Psychosocial Hx Smoking Status: No Smoking History: Never smoked Have you smoked in the past 12 months: Yes Number of Cigarettes Smoked Daily: 20 Information on smoking cessation initiated: Yes 'Breaking Loose' booklet given: 09/29/18 Hx Alcohol Use: No Drug/Substance Use Hx: No Substance Use Type: None Hx Substance Use Treatment: No *Physical Exam - Vital Signs Last Vital Signs Temp Pulse Resp BP Pulse Ox 98.1 F 89 16 103/42 L 100 09/29/18 18:16 09/29/18 18:16 09/29/18 18:16 09/29/18 18:16 09/29/18 18:16 - Physical Exam Comments: 09/29/18 18:43 awake alert lungs clear bilaterally heart rrr no mrg abd soft ntnd. right upper posterior molar lingual side with small area of erythema fullness. Medical Decision Making - Medical Decision Making 09/29/18 18:27 pt with dental caries. early abscess. will dc home follow up outpt dental. recommend motrin 600 mg every 8hrs as needed for pain. clindamycin. 09/29/18 18:43 *DC/Admit/Observation/Transfer Diagnosis at time of Disposition: Dental caries - Discharge Dispostion Disposition: HOME Condition at time of disposition: Improved - Prescriptions Prescriptions: Ibuprofen [Motrin -] 600 mg PO TID PRN #90 tablet MDD 3 PRN Reason: Pain - Referrals - Patient Instructions Printed Discharge Instructions: DI for Tooth Decay Additional Instructions: you need to follow up with a dentist. within 2 - 3 days. call to schedule. you can also go to a dental urgent care. there is one at [address] [place] [id number] they are open until 9 pm today. [phone] take clindamycin 300 mg three times daily for one week. - Post Discharge Activity
[2018-09-29] MEDS ORDERED: IBUPROFEN 600 MG TABLET (FP) PO ONE ×2 (18:45→18:48)
[2018-09-29] MEDS ORDERED: CLINDAMYCIN HCL 300 MG CAPSULE PO ONE (18:45)
[2018-09-29] MEDS ORDERED: CLINDAMYCIN HCL 150 MG CAPSULE (FP) ONE (18:49)
== END 2018-09-29 18:59 | disposition home or self-care (01) ==
LOC: FER 18:15
DX: K02.9 Dental caries, unspecified (principal); Z87.891 Personal history of nicotine dependence
CPT/HCPCS: 99282-25

== ENCOUNTER 2018-12-02 06:00 | Emergency (ER) | payer OTHER ==
[2018-12-02 06:09] VITALS: BP 101/66; PULSE 80; TEMP 97.6; BMI 23.5
[2018-12-02] MEDS ORDERED: ACETAMINOPHEN 325 MG TABLET (FP) ONE (06:20)
[2018-12-02] MEDS ORDERED: ACETAMINOPHEN 325 MG TABLET (FP) PO ONE (06:22)
--- NOTE | 2018-12-02 06:22 | PDOC ---
History of Present Illness - General Chief Complaint: Sore Throat Stated Complaint: NASAL CONGESTION, SORE THROAT History Source: Patient Exam Limitations: No Limitations - History of Present Illness Initial Comments: 12/02/18 06:17 38 yo male no pmhx here with c/o sore throat. pt states he recentlyquit smoking 4 days. ago. has been fasting during day for a work out and has been going to gym often. no f/c no difficulty swallowing. no f/c no cough. no other complaints. did not take anything prior to arrival. Past History - Past Medical History Allergies/Adverse Reactions: Allergies Allergy/AdvReac Type Severity Reaction Status Date / Time No Known Allergies Allergy Verified 01/23/18 22:26 Home Medications: Ambulatory Orders NK [No Known Home Medication] 12/02/18 Anemia: No Asthma: No Cancer: No Cardiac Disorders: No CVA: No COPD: No CHF: No DVT: No Dementia: No Diabetes: No Dialysis: No GI Disorders: No Disorders: No HTN: No Hypercholesterolemia: No Kidney Stones: No Liver Disease: No Psychiatric Problems: No Seizures: No Thyroid Disease: No Lung CA: No - Immunization History Immunization Up to Date: Yes - Suicide/Smoking/Psychosocial Hx Smoking Status: No Smoking History: Former smoker Have you smoked in the past 12 months: Yes Number of Cigarettes Smoked Daily: 20 If you are a former smoker, when did you quit?: 11/28/18 Information on smoking cessation initiated: No 'Breaking Loose' booklet given: 09/29/18 Hx Alcohol Use: No Drug/Substance Use Hx: No Substance Use Type: None Hx Substance Use Treatment: No Review of Systems - Review of Systems Constitutional: No: Diaphoresis, Fever HEENTM: Yes: Throat Pain Respiratory: No: Orthopnea, Shortness of Breath, Wheezing, Productive cough Cardiac (ROS): No: Chest Pain, Edema All Other Systems: Reviewed and Negative *Physical Exam - Vital Signs Last Vital Signs Temp Pulse Resp BP Pulse Ox 97.6 F 80 16 101/66 98 12/02/18 06:03 12/02/18 06:03 12/02/18 06:03 12/02/18 06:03 12/02/18 06:03 - Physical Exam Comments: 12/02/18 06:19 awake alert throat no erythema. no exudate. dry mucous membranes . lungs clear bilaterally heart rrr no mrg. abd soft nt nd. ext wwp. skin warm and dry no rash. Moderate Sedation - Procedure Monitoring Vital Signs: Procedure Monitoring Vital Signs Temperature 97.6 F 12/02/18 06:03 Pulse Rate 80 12/02/18 06:03 Respiratory Rate 16 12/02/18 06:03 Blood Pressure 101/66 12/02/18 06:03 O2 Sat by Pulse Oximetry (%) 98 12/02/18 06:03 Medical Decision Making - Medical Decision Making 12/02/18 06:19 pt with mild sxs sore throat. likley viral pharyngitis or dry throat. given tylenol here in ed. dc home with instructions for otc chloraseptic or lozenges and tylenol as needed. for persistant sxs kuldip to followup with ENT due to smoking history. *DC/Admit/Observation/Transfer Diagnosis at time of Disposition: Pharyngitis, acute - Discharge Dispostion Disposition: HOME Condition at time of disposition: Improved Decision to Admit order: No - Referrals Referrals: Eliza Queen MD [Primary Care Provider] - Christiano Gamez MD [Staff Physician] - - Patient Instructions Printed Discharge Instructions: Viral Pharyngitis, Sore Throat Additional Instructions: you can take tyelynol 500 mg every 6 hrs as needed for pain. use throat lozenges and chloraseptic spray available over the counter. for persistant symptoms beyond one week you should follow up with ENT doctor due to your smoking history for a more ourough exam. call dr Gamez to schedule followup. see referral information and call to schedule. return for any problems or concerns. - Post Discharge Activity
== END 2018-12-02 06:25 | disposition home or self-care (01) ==
LOC: FER 06:00
DX: J02.9 Acute pharyngitis, unspecified (principal); Z87.891 Personal history of nicotine dependence
CPT/HCPCS: 99281-25

== ENCOUNTER 2018-12-05 05:18 | Emergency (ER) | payer OTHER ==
[2018-12-05 05:26] VITALS: BP 137/72; PULSE 72; TEMP 97.7; BMI 25.0
--- NOTE | 2018-12-05 05:37 | PDOC ---
History of Present Illness - General Chief Complaint: Sore Throat Stated Complaint: SORE THROAT - History of Present Illness Initial Comments: 12/05/18 05:39 38yo M hx belgica glez presents to the ED with sore throat x 3 days. Pt reports this is his 3rd ER visit for the same but it has gotten worse. He reports the pain is now extending to his R ear. In addition, he reports 2 days of rhinorrhea. +subjective fevers, no temp measured. Denies cough. +sick contacts. DEnies difficulty swallowing, speaking, or breathing. Denies headache, stiff neck, cp, sob, abd pain, n/v/d, LE edema, rashes, weakness/numbness, dizziness. Past History - Past Medical History Allergies/Adverse Reactions: Allergies Allergy/AdvReac Type Severity Reaction Status Date / Time No Known Allergies Allergy Verified 12/05/18 05:22 Home Medications: Ambulatory Orders Amoxicillin - [Amoxicillin 500mg Capsule -] 500 mg PO BID #20 capsule 12/05/18 Anemia: No Asthma: No Cancer: No Cardiac Disorders: No CVA: No COPD: No CHF: No DVT: No Dementia: No Diabetes: No Dialysis: No GI Disorders: No Disorders: No HTN: No Hypercholesterolemia: No Kidney Stones: No Liver Disease: No Psychiatric Problems: No Seizures: No Thyroid Disease: No Lung CA: No - Immunization History Immunization Up to Date: Yes - Suicide/Smoking/Psychosocial Hx Smoking Status: No Smoking History: Never smoked Have you smoked in the past 12 months: No Number of Cigarettes Smoked Daily: 20 If you are a former smoker, when did you quit?: 11/28/18 Information on smoking cessation initiated: No 'Breaking Loose' booklet given: 09/29/18 Hx Alcohol Use: No Drug/Substance Use Hx: No Substance Use Type: None Hx Substance Use Treatment: No Review of Systems - Review of Systems Comments:: 12/05/18 05:40 GENERAL/CONSTITUTIONAL: +fever, no chills. No weakness. HEAD, EYES, EARS, NOSE AND THROAT: No change in vision. +ear pain and nasal discharge. +sore throat. GASTROINTESTINAL: No nausea, vomiting, diarrhea or constipation. GENITOURINARY: No dysuria, frequency, or change in urination. CARDIOVASCULAR: No chest pain or shortness of breath. RESPIRATORY: No cough, wheezing, or hemoptysis. MUSCULOSKELETAL: No joint or muscle swelling or pain. No neck or back pain. SKIN: No rash NEUROLOGIC: No headache, vertigo, loss of consciousness, or change in strength/ sensation. ENDOCRINE: No increased thirst. No abnormal weight change. HEMATOLOGIC/LYMPHATIC: No anemia, easy bleeding, or history of blood clots. ALLERGIC/IMMUNOLOGIC: No hives or skin allergy. *Physical Exam - Vital Signs Last Vital Signs Temp Pulse Resp BP Pulse Ox 97.7 F 72 16 137/72 100 12/05/18 05:23 12/05/18 05:23 12/05/18 05:23 12/05/18 05:23 12/05/18 05:23 - Physical Exam Comments: 12/05/18 05:43 GENERAL: Awake, alert, and fully oriented, in no acute distress. Non-toxic appearing. EYES: PERRLA, EOMI, sclera anicteric, conjunctiva clear ENT: +cloudy R TM with dulled light reflex. L TM wnl with good light reflex. + clear nasal DC, +erythema to posterior OP, +R sided tonsillar exudates, no petechie, no abscess, uvula midline. Normal voice NECK: +R sided tender ant cervical LAD LUNGS: Breath sounds equal, clear to auscultation bilaterally. No wheezes, and no crackles HEART: Regular rate and rhythm, normal S1 and S2, no murmurs, rubs or gallops ABDOMEN: Soft, nontender, normoactive bowel sounds. No guarding, no rebound. No masses EXTREMITIES: WWP NEUROLOGICAL: Normal speech, cranial nerves intact, equal strength/sensation b/ l, normal gait SKIN: Warm, Dry, normal turgor, no rashes or lesions noted. Moderate Sedation - Procedure Monitoring Vital Signs: Procedure Monitoring Vital Signs Temperature 97.7 F 12/05/18 05:23 Pulse Rate 72 12/05/18 05:23 Respiratory Rate 16 12/05/18 05:23 Blood Pressure 137/72 12/05/18 05:23 O2 Sat by Pulse Oximetry (%) 100 12/05/18 05:23 Medical Decision Making - Medical Decision Making 12/05/18 05:47 38yo M presents to the ED with worsening sore throat, and now right sided ear pain. Vitals wnl. Exam with rhinorrhea, R cloudy TM, and tonsillar exudates. Tolerating secretions. Impression: otitis media with possible strep throat. Strep swab sent, plan to treat with amoxicillin. Pt otherwise non toxic appearing, well. Will f/u with Dr. Queen in 2-3 days, requests DC home. I discussed the physical exam findings, ancillary test results and final diagnoses with the patient. I answered all of the patient's questions. The patient was satisfied with the care received and felt comfortable with the discharge plan and treatment plan. The patient will call their primary care physician within 24 hours to arrange follow-up and will return to the Emergency Department with any new, persistent or worsening symptoms. *DC/Admit/Observation/Transfer Diagnosis at time of Disposition: Pharyngitis, acute, URI (upper respiratory infection), Otitis media - Discharge Dispostion Disposition: HOME Condition at time of disposition: Stable Decision to Admit order: No - Prescriptions Prescriptions: Amoxicillin - [Amoxicillin 500mg Capsule -] 500 mg PO BID #20 capsule - Referrals - Patient Instructions Printed Discharge Instructions: DI for Pharyngitis/Tonsillopharyngitis -- Adult Additional Instructions: Follow up with your primary care doctor in 2-3 days Take the antibiotics as prescribed Return to the emergency department if you have any new, worsening, or concerning symptoms - Post Discharge Activity - Attestations Physician Attestion: 12/05/18 05:50 I, Dr. Gabo Candelario MD, attest that this document has been prepared under my direction and personally reviewed by me in its entirety. I further attest, that it accurately reflects all work, treatment, procedures and medical decision -making performed by me.
== END 2018-12-05 06:05 | disposition home or self-care (01) ==
LOC: FER 05:18
DX: R50.9 Fever, unspecified (principal); J06.9 Acute upper respiratory infection, unspecified; H66.91 Otitis media, unspecified, right ear
CPT/HCPCS: 87070; 87880; 99281-25

== ENCOUNTER 2019-01-19 21:19 | Emergency (ER) | payer OTHER ==
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
[2019-01-19 21:32] VITALS: BP 130/76; PULSE 90; BMI 23.5
== END 2019-01-19 21:41 | disposition home or self-care (01) ==
LOC: FER 21:19
DX: T23.131A Burn of first degree of multiple right fingers (nail), not including thumb, initial encounter (principal); T31.0 Burns involving less than 10% of body surface; X15.0XXA Contact with hot stove (kitchen), initial encounter; Y93.G3 Activity, cooking and baking; Y92.000 Kitchen of unspecified non-institutional (private) residence as the place of occurrence of the external cause
CPT/HCPCS: 99281-25

== ENCOUNTER 2019-02-17 23:37 | Emergency (ER) | payer OTHER ==
[2019-02-17 23:48] VITALS: BP 132/87; PULSE 87; TEMP 97.8; BMI 23.5
--- NOTE | 2019-02-18 01:20 | PDOC ---
History of Present Illness - General Chief Complaint: Toothache Stated Complaint: TOOTH/HAND PAIN Time Seen by Provider: 02/17/19 23:43 - History of Present Illness Initial Comments: 02/18/19 01:19 this patient left prior to medical evaluation Past History - Past Medical History Allergies/Adverse Reactions: Allergies Allergy/AdvReac Type Severity Reaction Status Date / Time No Known Allergies Allergy Verified 01/19/19 21:25 Home Medications: Ambulatory Orders NK [No Known Home Medication] 01/19/19 Anemia: No Asthma: No Cancer: No Cardiac Disorders: No CVA: No COPD: No CHF: No DVT: No Dementia: No Diabetes: No Dialysis: No GI Disorders: No Disorders: No HTN: No Hypercholesterolemia: No Kidney Stones: No Liver Disease: No Psychiatric Problems: No Seizures: No Thyroid Disease: No Lung CA: No - Immunization History Immunization Up to Date: Yes - Suicide/Smoking/Psychosocial Hx Smoking Status: No Smoking History: Current every day smoker Have you smoked in the past 12 months: No Number of Cigarettes Smoked Daily: 20 If you are a former smoker, when did you quit?: 11/28/18 Information on smoking cessation initiated: Yes 'Breaking Loose' booklet given: 09/29/18 Hx Alcohol Use: No Drug/Substance Use Hx: No Substance Use Type: None Hx Substance Use Treatment: No *Physical Exam - Vital Signs Last Vital Signs Temp Pulse Resp BP Pulse Ox 97.8 F 87 16 132/87 100 02/17/19 23:41 02/17/19 23:41 02/17/19 23:41 02/17/19 23:41 02/17/19 23:41 Moderate Sedation - Procedure Monitoring Vital Signs: Procedure Monitoring Vital Signs Temperature 97.8 F 02/17/19 23:41 Pulse Rate 87 02/17/19 23:41 Respiratory Rate 16 02/17/19 23:41 Blood Pressure 132/87 02/17/19 23:41 O2 Sat by Pulse Oximetry (%) 100 02/17/19 23:41 *DC/Admit/Observation/Transfer Diagnosis at time of Disposition: Patient left before evaluation by physician - Discharge Dispostion Disposition: LEFT BEFORE [facility] Condition at time of disposition: Stable - Referrals Referrals: Eliza Queen MD [Primary Care Provider] - - Patient Instructions - Post Discharge Activity
== END 2019-02-18 00:18 | disposition left against medical advice (07) ==
LOC: FER 23:37
DX: Z53.21 Procedure and treatment not carried out due to patient leaving prior to being seen by health care provider (principal)
CPT/HCPCS: 99282-25

== ENCOUNTER 2019-02-18 05:37 | Emergency (ER) | payer OTHER ==
--- NOTE | 2019-02-18 05:41 | PDOC ---
History of Present Illness - General Chief Complaint: Toothache Stated Complaint: TOOTHACHE Time Seen by Provider: 02/18/19 05:40 - History of Present Illness Initial Comments: 02/18/19 05:57 This 38-year-old man with no significant past medical history presents with one- day history of tooth pain. Patient states that the right upper central incisor had been painful a few years ago. At that time, he was seen by a dentist and was recommended to have root canal treatment. He did not pursue that and pain resolved. Yesterday, the pain recurred spontaneously. He denies any trauma to the tooth. Pain worsened with drinking or eating and by touching the tooth. No other complaints. He has had no fever/chills or difficulty swallowing. He states he has not taken any medication for the pain because he does not like to take medications. Patient registered to be seen here earlier in the overnight but left prior to medical evaluation. Patient states that he went home but was unable to sleep secondary to the pain in his tooth Past History - Past Medical History Allergies/Adverse Reactions: Allergies Allergy/AdvReac Type Severity Reaction Status Date / Time No Known Allergies Allergy Verified 01/19/19 21:25 Home Medications: Ambulatory Orders Amoxicillin - [Amoxicillin 500mg Capsule -] 500 mg PO TID #21 capsule 02/18/19 Anemia: No Asthma: No Cancer: No Cardiac Disorders: No CVA: No COPD: No CHF: No DVT: No Dementia: No Diabetes: No Dialysis: No GI Disorders: No Disorders: No HTN: No Hypercholesterolemia: No Kidney Stones: No Liver Disease: No Psychiatric Problems: No Seizures: No Thyroid Disease: No Lung CA: No - Immunization History Immunization Up to Date: Yes - Suicide/Smoking/Psychosocial Hx Smoking Status: No Smoking History: Current every day smoker Have you smoked in the past 12 months: No Number of Cigarettes Smoked Daily: 20 If you are a former smoker, when did you quit?: 11/28/18 'Breaking Loose' booklet given: 09/29/18 Hx Alcohol Use: No Drug/Substance Use Hx: No Substance Use Type: None Hx Substance Use Treatment: No Review of Systems - Review of Systems Able to Perform ROS?: Yes Comments:: 12 point review of systems is negative except for what is noted in the history of present illness *Physical Exam - Physical Exam Comments: GENERAL: Adult male, alert and oriented 3, in mild distress secondary to his pain HEAD: Normal with no signs of trauma. EYES: PERRLA, EOMI, sclera anicteric, conjunctiva clear. ENT: Ears normal, nares patent, oropharynx clear without exudates. Moist mucous membranes. Mild edema/mild tenderness gingival surface base of right upper central incisor; tooth not fractured NECK: Normal range of motion, supple without lymphadenopathy, JVD, or masses. . Medical Decision Making - Medical Decision Making 02/18/19 06:01 Clinical presentation in this patient most consistent with early dental abscess of right upper central incisor. Patient has had pain in in this tooth in the past but it apparently resolved without dental intervention. Amoxicillin 500 mg 3 times a day for one week prescribed. First dose given here in the ER. Patient also urged to take Tylenol/Motrin/Aleve as needed for pain. He should maintain a soft diet and avoid extremes of temperature in the liquids/solids that he eat. He is urged to call his dentist when the office opens tomorrow morning to arrange followup evaluation *DC/Admit/Observation/Transfer Diagnosis at time of Disposition: Dental abscess - Discharge Dispostion Disposition: HOME Condition at time of disposition: Stable - Prescriptions Prescriptions: Amoxicillin - [Amoxicillin 500mg Capsule -] 500 mg PO TID #21 capsule - Referrals Referrals: Eliza Queen MD [Primary Care Provider] - - Patient Instructions Printed Discharge Instructions: DI for Tooth Abscess Additional Instructions: Soft diet Amoxicillin 500 mg 3 times a day for 1 week Call your dentist in the morning to arrange follow-up within the next 48 hours Tylenol/Motrin as needed for pain - Post Discharge Activity
[2019-02-18] MEDS ORDERED: AMOXICILLIN 250 MG CAPSULE ONE (05:54)
[2019-02-18 05:55] VITALS: BP 138/89; PULSE 90; TEMP 97.6; BMI 29.7
== END 2019-02-18 05:57 | disposition home or self-care (01) ==
LOC: FER 05:37
DX: K04.7 Periapical abscess without sinus (principal); F17.210 Nicotine dependence, cigarettes, uncomplicated
CPT/HCPCS: 99282-25

== ENCOUNTER 2019-04-03 14:44 | Emergency (ER) | payer OTHER ==
--- NOTE | 2019-04-03 14:48 | PDOC ---
History of Present Illness - General Chief Complaint: Pain, Acute Stated Complaint: STOMACH PAIN AFTER EATING CHICKEN SALAD Time Seen by Provider: 04/03/19 14:47 History Source: Patient Exam Limitations: No Limitations - History of Present Illness Initial Comments: 04/03/19 14:47 38 year old male with PMH GERD presented to ED for epigastric pain a half hour after eating a chicken salad. Pt stated he has been drinking up to 30 cups of coffee a day in an effort to lose weight. He also admitted to eating tomatoes. Pt stated that his pain was intermittent, sharp, nonradiating, no alleviating or aggravating factors. Pt denied nausea, vomiting, fever, chills, diarrhea, constipation, blood in stool, chest pain, shortness of breath. Allergies: NKDA Past History - Past Medical History Allergies/Adverse Reactions: Allergies Allergy/AdvReac Type Severity Reaction Status Date / Time No Known Allergies Allergy Verified 04/03/19 14:49 Home Medications: Ambulatory Orders Esomeprazole Magnesium [Nexium 24Hr] 20 mg PO DAILY #20 tablet. 04/03/19 Famotidine [Pepcid -] 20 mg PO BID #14 tablet 04/03/19 Anemia: No Asthma: No Cancer: No Cardiac Disorders: No CVA: No COPD: No CHF: No DVT: No Dementia: No Diabetes: No Dialysis: No GI Disorders: No Disorders: No HTN: No Hypercholesterolemia: No Kidney Stones: No Liver Disease: No Psychiatric Problems: No Seizures: No Thyroid Disease: No Lung CA: No - Immunization History Immunization Up to Date: Yes - Suicide/Smoking/Psychosocial Hx Smoking Status: No Smoking History: Current every day smoker Have you smoked in the past 12 months: No Number of Cigarettes Smoked Daily: 20 If you are a former smoker, when did you quit?: 11/28/18 'Breaking Loose' booklet given: 09/29/18 Hx Alcohol Use: No Drug/Substance Use Hx: No Substance Use Type: None Hx Substance Use Treatment: No Review of Systems - Review of Systems Able to Perform ROS?: Yes Comments:: 04/03/19 14:57 General: denied fever, chills, generalized weakness. HEENT: denied sore throat, rhinorrhea, ear pain. Heart: denied chest pain, palpitations, syncope, diaphoresis. Respiratory: denied shortness of breath, cough, sputum production, hemoptysis. Abdomen: admitted to abdominal pain. denied nausea, vomiting, diarrhea, constipation, blood in stool. : denied dysuria, increased urinary frequency, hematuria, urinary incontinence , flank pain. Back: denied back pain. Musculoskeletal: denied joint pain, muscle pain, joint swelling. Neurological: denied headache, dizziness, numbness, tingling, weakness. Skin: denied rash, laceration, abrasion. *Physical Exam - Physical Exam Comments: 04/03/19 14:58 Constitutional: Well-nourished, Well-developed, appearing stated age. HEENT: head is normocephalic, atraumatic. EOMI. PERRLA. Neck: supple. Full ROM. Heart: regular rhythm. no murmurs, rubs or gallops. Lungs: clear to auscultation bilaterally. no crackles, rhonchi or wheezing. no stridor. Abdomen: soft, flat, nontender to palpation. increased bowel sounds. mcburneys nontender. murphys negative. psoas negative. obturator negative. no rebound, guarding, masses. Extremities: peripheral pulses intact. no lower extremity edema. Neurological: CN 2-12 grossly intact. moves all four extremities. Psych: awake, alert, oriented x3. follows commands. answers questions appropriately. ED Treatment Course - LABORATORY CBC & Chemistry Diagram: 04/03/19 15:13 04/03/19 15:13 Medical Decision Making - Medical Decision Making 04/03/19 14:59 38 year old male with above PMH presented to ED for epigastric pain. Initial Vital Signs Temp Pulse Resp BP Pulse Ox 98.3 F 72 16 122/81 96 04/03/19 14:45 04/03/19 14:45 04/03/19 14:45 04/03/19 14:45 04/03/19 14:45 Afebrile. No tachycardia. No tachypnea. No hypertension. No hypoxia on room air. Labs ordered: CBC, CMP lipase Medications ordered: Pepcid, Maalox Imaging ordered: none 04/03/19 15:25 CBC WBC 5.4 K/mm3 (4.0-10.8) 04/03/19 15:13 RBC 4.70 M/mm3 (4.00-5.60) 04/03/19 15:13 Hgb 14.3 GM/dl (11.7-16.9) 04/03/19 15:13 Hct 42.1 % (35.4-49) 04/03/19 15:13 MCV 89.6 fl (80-96) 04/03/19 15:13 MCH 30.4 pg (25.7-33.7) 04/03/19 15:13 MCHC 33.9 g/dl (32.0-35.9) 04/03/19 15:13 RDW 12.1 % (11.9-15.9) 04/03/19 15:13 Plt Count 179 K/MM3 (134-434) D 04/03/19 15:13 MPV 8.7 fl (7.5-11.1) D 04/03/19 15:13 Absolute Neuts (auto) 3.1 K/mm3 04/03/19 15:13 Neutrophils % 57.6 % (42.8-82.8) D 04/03/19 15:13 Lymphocytes % 30.8 % (8-40) D 04/03/19 15:13 Monocytes % 7.3 % (3.8-10.2) 04/03/19 15:13 Eosinophils % 3.5 % (0-4.5) D 04/03/19 15:13 Basophils % 0.8 % (0-2.0) 04/03/19 15:13 No leukocytosis. No anemia. 04/03/19 15:47 CMP Sodium 136 mmol/L (136-145) 04/03/19 15:13 Potassium 4.1 mmol/L (3.5-5.1) 04/03/19 15:13 Chloride 102 mmol/L (98-107) 04/03/19 15:13 Carbon Dioxide 24 mmol/L (21-32) 04/03/19 15:13 Anion Gap 10 MMOL/L (8-16) 04/03/19 15:13 BUN 27 mg/dl (7-18) H 04/03/19 15:13 Creatinine 0.8 mg/dl (0.55-1.3) 04/03/19 15:13 Creat Clearance w eGFR 107.07 (>60) 04/03/19 15:13 Random Glucose 99 mg/dl (74-106) 04/03/19 15:13 Calcium 9.5 mg/dl (8.5-10) 04/03/19 15:13 Total Bilirubin 0.8 mg/dl (0.2-1) 04/03/19 15:13 AST 28 U/L (15-37) 04/03/19 15:13 ALT 25 U/L (13-61) 04/03/19 15:13 Alkaline Phosphatase 42 U/L (45-117) L 04/03/19 15:13 Total Protein 6.4 g/dl (6.4-8.2) 04/03/19 15:13 Albumin 4.1 g/dl (3.4-5.0) 04/03/19 15:13 No electrolyte abnormalities. No ANGELIQUE. No transaminitis. Pt reported feeling better, requesting to go home. Pt informed of results. Pt discharged. Discharge medication: Pepcid and Nexium. Pt given GI follow up. 04/03/19 18:57 Lipase normal. *DC/Admit/Observation/Transfer Diagnosis at time of Disposition: Epigastric pain - Discharge Dispostion Disposition: HOME Condition at time of disposition: Improved Decision to Admit order: No - Prescriptions Prescriptions: Esomeprazole Magnesium [Nexium 24Hr] 20 mg PO DAILY #20 tablet. Famotidine [Pepcid -] 20 mg PO BID #14 tablet - Referrals Referrals: Jose Rainey DO [Staff Physician] - Denton Harris MD [Staff Physician] - Juan Manuel Muñiz MD [Staff Physician] - Anish Begum MD [Staff Physician] - - Patient Instructions Printed Discharge Instructions: [place] Diet, DI for Gastroesophageal Reflux Disease (GERD), DI for Gastritis, GERD Diet Additional Instructions: You were seen today for abdominal pain. Your lab work was normal. Your EKG was normal. Stop drinking caffeine. Do not use any stimulants in an effort to lose weight. Eat a bland diet the next 24 hours - bread, rice, toast, applesauce. Exclude these foods from your diet as they can irritate your stomach: caffeine, coffee, tea, energy drinks, tomatoes, spicy food, friend food, greasy food, chocolate. Follow up with your primary care doctor within 5 days. Bring the paperwork given to you today to your appointment. Follow up with a grinder [employer] within 7 days. Bring the paperwork given to you today to your appointment. - I have provided you with multiple referrals I have sent a prescription to your pharmacy for Pepcid, to treat your stomach irritation. Take as advised on label. Return to the Emergency Department for increasing pain, difficulty breathing, vomiting, vomiting blood, blood in stool, fever, chest pain, shortness of breath , lightheadedness like you may pass out or any other new, worsening or concerning symptoms. - Post Discharge Activity Forms/Work/School Notes: Back to Work
[2019-04-03] MEDS ORDERED: MAG HYDROX/AL HYDROX/SIMETH 30 ML UNIT-DOSE CUP PO ONE (14:55)
[2019-04-03] MEDS ORDERED: FAMOTIDINE 20 MG/50 ML IVPB 20 MG/50 ML MG IVPB ONE ×2 (14:55→15:11)
[2019-04-03 15:01] VITALS: BP 122/81; PULSE 70; TEMP 98.3; BMI 22.7
[2019-04-03] MEDS ORDERED: MAG HYDROX/AL HYDROX/SIMETH 30 ML UNIT-DOSE CUP ONE (15:11)
[2019-04-03 15:20] LABS: BASO % 0.8 % (0-2.0); EOS % 3.5 % (0-4.5); HEMATOCRIT 42.1 % (35.4-49); HEMOGLOBIN 14.3 GM/dl (11.7-16.9); LYMPH % 30.8 % (8-40); MCH 30.4 pg (25.7-33.7); MCHC 33.9 g/dl (32.0-35.9); MEAN CELL VOLUME 89.6 fl (80-96); MEAN PLT VOLUME 8.7 fl (7.5-11.1); MONO % 7.3 % (3.8-10.2); NEUT % 57.6 % (42.8-82.8); PLATELET COUNT 179 K/MM3 (134-434); RDW 12.1 % (11.9-15.9); WHITE BLOOD COUNT 5.4 K/mm3 (4.0-10.8)
--- NOTE | 2019-04-03 15:20 | PDOC ---
Attending Attestation - Resident Resident Name: Ayana Alcala - ED Attending Attestation I have performed the following: I have examined & evaluated the patient, The case was reviewed & discussed with the resident, I agree w/resident's findings & plan - HPI HPI: 04/03/19 15:15 Healthy 38-year-old male with no significant past medical or surgical history other than gastritis diagnosed many years ago and treated at that time with PPI presents now with epigastric pain that began earlier today, no associated fever/ chills/nausea/vomiting/diarrhea/constipation/chest pain/difficulty breathing. Pain occurs in the setting of drinking excessive amounts of coffee over the last 48 hours, 30 cups 2 days ago and 15 cups yesterday as part of a diet plan, also had tomatoes which typically exacerbate his gastritis. smokes daily, denies excessive etoh use or nsaid use. no melena/brbpr, had normal BM this morning. no travel, had abx for tooth infection about 2-3 months ago. - Physicial Exam PE: 04/03/19 15:17 Vital signs stable, well-appearing and well-hydrated No jaundice or pallor, moist mucous membranes Heart is regular, lungs are clear Abdomen is soft/nondistended. Epigastric discomfort to palpation without guarding or rebound, no right upper quadrant tenderness. No CVA tenderness. No palpable masses or hernias. - Medical Decision Making 04/03/19 15:17 38-year-old male with history of gastritis presents with epigastric discomfort for one day in the setting of exacerbating diet changes. no evidence of focal peritoneal process or cardiopulmonary process. labs ekg antacids reassess Heart Score/ECG Review #1 ECG reviewed & interpreted by me at: 15:33 General ECG Interpretation: Sinus Rhythm, Normal Rate (63), Normal Intervals ( qtc 392), No acute ischemic changes
[2019-04-03 15:33] LABS: ALBUMIN 4.1 g/dl (3.4-5.0); ALK PHOS 42 U/L (45-117); ANION GAP 10 MMOL/L (8-16); BILIRUBIN,TOTAL 0.8 mg/dl (0.2-1); BLOOD UREA NITROGEN 27 mg/dl (7-18); CALCIUM 9.5 mg/dl (8.5-10); CHLORIDE 102 mmol/L (98-107); CO2 24 mmol/L (21-32); CREATININE 0.8 mg/dl (0.55-1.3); GLUCOSE,RANDOM 99 mg/dl (74-106); POTASSIUM 4.1 mmol/L (3.5-5.1); SGOT/AST 28 U/L (15-37); SGPT/ALT 25 U/L (13-61); SODIUM 136 mmol/L (136-145); TOT PROT 6.4 g/dl (6.4-8.2)
[2019-04-03 16:22] LABS: LIPASE 81 U/L (73-393)
--- NOTE | 2019-04-04 08:25 | EKG ---
Test Reason : Blood Pressure : / mmHG Vent. Rate : 063 BPM Atrial Rate : 063 BPM P-R Int : 196 ms QRS Dur : 086 ms QT Int : 384 ms P-R-T Axes : 071 082 055 degrees QTc Int : 392 ms NORMAL SINUS RHYTHM NORMAL ECG WHEN COMPARED WITH ECG OF 26-JAN-2017 07:19, VENT. RATE HAS DECREASED BY 45 BPM Confirmed by SHAR OSORIO, BEATRICE ([id number]) on 04/04/2019 8:25:26 AM Referred By: DR BARRETO Confirmed By:BEATRICE MYLES MD
== END 2019-04-03 16:22 | disposition home or self-care (01) ==
LOC: FER 14:44
PROC: 3E033GC Introduction of Other Therapeutic Substance into Peripheral Vein, Percutaneous Approach (ICD-10-PCS; principal; 2019-04-03)
DX: R10.13 Epigastric pain (principal); K21.9 Gastro-esophageal reflux disease without esophagitis; F17.210 Nicotine dependence, cigarettes, uncomplicated
CPT/HCPCS: 36415; 80053; 83690; 85025; 93005; 96365; 99283-25

== ENCOUNTER 2020-01-06 16:25 | Emergency (ER) | payer OTHER ==
[2020-01-06 17:04] VITALS: BP 140/99; PULSE 84; TEMP 97.2; BMI 25.8
--- NOTE | 2020-01-06 18:00 | PDOC ---
Documentation entered by Ronaldo Christopher SCRIBE, acting as scribe for Jesse Amato MD. Jesse Mcgrath MD: This documentation has been prepared by the Candi dixon Nirvannie, SCRIBE, under my direction and personally reviewed by me in its entirety. I confirm that the documentation accurately reflects all work, treatment, procedures, and medical decision making performed by me. History of Present Illness - General Chief Complaint: Respiratory Stated Complaint: RESPIRATORY INFECTION History Source: Patient Exam Limitations: No Limitations - History of Present Illness Initial Comments: 01/06/20 17:28 The patient is a 39 year old male, with a significant past medical history of GERD, who presents to the emergency department with 2 days of cough, headache, and generalized weakness. As per patient, he was recently sick a week ago and evaluated in urgent care without any pertinent findings. He notes yesterday he began to experience a productive cough with yellow sputum. He notes taking Tylenol for his symptoms, with minimal relief. He denies any change in PO intake. He denies any recent fevers, chills, or dizziness. He denies any recent nausea, vomit, diarrhea or constipation. He denies any recent chest pain or shortness of breath. He denies any recent dysuria, frequency, urgency or hematuria. Allergies: NKA Past surgical history: None reported. Social History: Smoker. Denies excessive EtOH use or recreational drug use. Familial History: Reviewed, noncontributory. No history of respiratory or cardiac disorders noted. Primary Care Physician: Dr. Queen Past History - Past Medical History Allergies/Adverse Reactions: Allergies Allergy/AdvReac Type Severity Reaction Status Date / Time No Known Allergies Allergy Verified 01/06/20 16:59 Home Medications: Ambulatory Orders Guaifenesin AC [Robitussin-AC] 1 - 2 tsp PO Q4HWA PRN #120 ml MDD 6 01/06/20 Omeprazole 40 mg PO DAILY #30 tablet. 01/06/20 Anemia: No Asthma: No Cancer: No Cardiac Disorders: No CVA: No COPD: No CHF: No DVT: No Dementia: No Diabetes: No Dialysis: No GI Disorders: No Disorders: No HTN: No Hypercholesterolemia: No Kidney Stones: No Liver Disease: No Psychiatric Problems: No Seizures: No Thyroid Disease: No Lung CA: No - Immunization History Immunization Up to Date: Yes - Psycho Social/Smoking Cessation Hx Smoking Status: No Smoking History: Current every day smoker Have you smoked in the past 12 months: No Number of Cigarettes Smoked Daily: 20 If you are a former smoker, when did you quit?: 11/28/18 'Breaking Loose' booklet given: 09/29/18 Hx Alcohol Use: No Drug/Substance Use Hx: No Substance Use Type: None Hx Substance Use Treatment: No Review of Systems - Review of Systems Able to Perform ROS?: Yes Comments:: 01/06/20 17:28 CONSTITUTIONAL: Present: Generalized weakness Absent: fever, no chills EYES: Absent: visual changes ENT: Absent: ear pain, no sore throat CARDIOVASCULAR: Absent: chest pain, no palpitations RESPIRATORY: Present: Cough. Absent: no SOB GI: Absent: abdominal pain, no nausea, no vomiting, no constipation, no diarrhea GENITOURINARY: Absent: dysuria, no frequency, no hematuria MUSKULOSKELETAL: Absent: back pain, no arthralgia, no myalgia SKIN: Absent: rash NEURO: Present: headache All Other Systems: Reviewed and Negative *Physical Exam - Vital Signs Last Vital Signs Temp Pulse Resp BP Pulse Ox 97.2 F L 84 16 140/99 98 01/06/20 16:32 01/06/20 16:32 01/06/20 16:32 01/06/20 16:32 01/06/20 16:32 - Physical Exam 01/06/20 17:29 GENERAL: Well developed, well nourished. Awake and alert. No acute distress. HEENT: Normocephalic, atraumatic. PERRLA, EOMI. No conjunctival pallor. Sclera are non- icteric. Moist mucous membranes. Oropharynx is clear. NECK: Supple. Full ROM. No JVD. Carotid pulses 2+ and symmetric, without bruits. No thyromegaly. No lymphadenopathy. CARDIOVASCULAR: Regular rate and rhythm. No murmurs, rubs, or gallops. Distal pulses are 2+ and symmetric. PULMONARY: +Decreased breath sounds bilaterally with occasional end expiratory wheezing to the lower lung john posteriorly with bilateral symmetry. No tachypnea or dyspnea. No evidence of respiratory distress. No rales or rhonchi. ABDOMINAL: Soft. Non-tender. Non-distended. No rebound or guarding. No organomegaly. Normoactive bowel sounds. MUSCULOSKELETAL Normal range of motion at all joints. No bony deformities or tenderness. No CVA tenderness. EXTREMITIES: No cyanosis. No clubbing. No edema. No calf tenderness. SKIN: Warm and dry. Normal capillary refill. No rashes. No jaundice. NEUROLOGICAL: Alert, awake, appropriate. Cranial nerves 2-12 intact. No deficits to light touch and temperature in face, upper extremities and lower extremities. No motor deficits in the in face, upper extremities and lower extremities. Normoreflexic in the upper and lower extremities. Normal speech. Toes are down- going bilaterally. Gait is normal without ataxia. PSYCHIATRIC: Cooperative. Good eye contact. Appropriate mood and affect. ED Treatment Course - RADIOLOGY Radiology Studies Ordered: Category Date Time Status CHEST PA & LAT [RAD] Stat Radiology 01/06/20 16:57 Taken Medical Decision Making - Medical Decision Making 01/06/20 17:59 Smoker with 2-week history of intractable cough, especially at night. No fever/ chills, chest pain, or shortness of breath Chest x-ray: Clear Impression is persistent bronchospasm/reactive airway disease following respiratory infection. No active infection appears to be present now. Plan is to control the cough and follow-up primary physician. Fully ambulatory in no distress respiratory or otherwise at discharge. Discharge - Discharge Information Problems reviewed: Yes Clinical Impression/Diagnosis: Reactive airway disease Qualifiers: Asthma severity: mild Asthma persistence: intermittent Asthma complication type : uncomplicated Qualified Code(s): J45.20 - Mild intermittent asthma, uncomplicated Condition: Stable Disposition: HOME - Admission No - Additional Discharge Information Prescriptions: Guaifenesin AC [Robitussin-AC] 1 - 2 tsp PO Q4HWA PRN #120 ml MDD 6 PRN Reason: Cough Omeprazole 40 mg PO DAILY #30 tablet.dr - Follow up/Referral Referrals: Eliza Queen MD [Primary Care Provider] - 3 days - Patient Discharge Instructions Patient Printed Discharge Instructions: DI for Reactive Airway Disease-Adult Additional Instructions: Try to cut down on smoking as much as possible Cough medication as needed Follow-up primary physician 3 to 5 days. Return to hospital if there is fever, chest pain, or shortness of breath - Post Discharge Activity
== END 2020-01-06 18:11 | disposition home or self-care (01) ==
LOC: FER 16:25
DX: J45.20 Mild intermittent asthma, uncomplicated (principal); F17.210 Nicotine dependence, cigarettes, uncomplicated
CPT/HCPCS: 71046-TC-FY; 99283-25

== ENCOUNTER 2020-01-16 06:24 | Emergency (ER) | payer OTHER ==
--- NOTE | 2020-01-16 06:25 | PDOC ---
History of Present Illness - General Chief Complaint: Respiratory Stated Complaint: COUGH,FEVER Time Seen by Provider: 01/16/20 06:25 - History of Present Illness Initial Comments: 01/16/20 06:41 This 39-year-old man with a history of GERD, heavy tobacco smoker presents with several hour history of epigastric discomfort and regurgitation consistent with his usual reflux symptoms. Patient admits that he ate a lot of pizza yesterday. Overnight, he felt epigastric pain with regurgitation and burning in his mid chest. Had one episode of vomiting (partially digested food). He also complains of nonproductive cough for the last several hours and a headache. No history of fever/chills/sore throat or body aches. Patient states that he does not have a thermometer. The patient has been prescribed omeprazole 40 mg daily but admits to only partial compliance. He denies shortness of breath, chest pain, diaphoresis Medications: Omeprazole 40 mg daily No known allergies 1 pack/day smoker; no daily alcohol or other recreational drug use Past History - Past Medical History Allergies/Adverse Reactions: Allergies Allergy/AdvReac Type Severity Reaction Status Date / Time No Known Allergies Allergy Verified 01/16/20 06:25 Home Medications: Ambulatory Orders Omeprazole 40 mg PO DAILY #30 tablet. 01/06/20 Anemia: No Asthma: No Cancer: No Cardiac Disorders: No CVA: No COPD: No CHF: No DVT: No Dementia: No Diabetes: No Dialysis: No GI Disorders: No Disorders: No HTN: No Hypercholesterolemia: No Kidney Stones: No Liver Disease: No Psychiatric Problems: No Seizures: No Thyroid Disease: No Lung CA: No - Immunization History Immunization Up to Date: Yes - Psycho Social/Smoking Cessation Hx Smoking Status: No Smoking History: Current every day smoker Have you smoked in the past 12 months: No Number of Cigarettes Smoked Daily: 20 If you are a former smoker, when did you quit?: 11/28/18 'Breaking Loose' booklet given: 01/06/20 Hx Alcohol Use: No Drug/Substance Use Hx: No Substance Use Type: None Hx Substance Use Treatment: No Review of Systems - Review of Systems Able to Perform ROS?: Yes Comments:: 12 point review of systems is negative except for what is noted in the history of present illness *Physical Exam - Physical Exam GENERAL: Adult male, alert and oriented x3, in no acute distress HEAD: Normal with no signs of trauma. EYES: PERRLA, EOMI, sclera anicteric, conjunctiva clear. ENT: Ears normal, nares patent, oropharynx clear without exudates. Moist mucous membranes. NECK: Normal range of motion, supple without lymphadenopathy, JVD, or masses. LUNGS: Breath sounds equal, clear to auscultation bilaterally. No wheezes, and no crackles. HEART:Regular rate and rhythm, normal S1 and S2 without murmur, rub or gallop. ABDOMEN:.normal bowel sounds No guarding,tenderness or rebound.No masses No distention. EXTREMITIES: Normal range of motion, no edema. No clubbing or cyanosis. No erythema, or tenderness. NEUROLOGICAL: Cranial nerves II through XII grossly intact. Normal speech. No focal neurological deficits. MUSCULOSKELETAL: Back non-tender to palpation, no CVA tenderness SKIN: Warm, Dry, normal turgor, no rashes or lesions noted. ED Progress Note - Progress Note Progress Note: This 39-year-old man presents with several hour history of epigastric discomfort , regurgitation and one episode of vomiting (partially digested food). Patient has a history of GERD; symptoms began after eating pizza yesterday. Patient admits that he is not fully compliant with daily omeprazole 40 mg. Exam as noted with no evidence of dehydration, abnormal lung sounds or abdominal tenderness. Clinical presentation consistent with exacerbation of GERD secondary to dietary indiscretion. He may also have an early viral syndrome with his symptoms of subjective fever and headache. Lungs are clear without evidence of wheezing or other abnormal breath sounds. There is no evidence of significant dehydration currently. Patient was given 1 g of acetaminophen by mouth for his headache; Protonix 40 mg also given orally. Patient is discharged with instructions to maintain a light diet (especially plenty of fluids) and to avoid foods that trigger his GERD. He should rest and use Tylenol if he has recurrence of headache. He should purchase a thermometer and treat fever as needed. He should return to the ER if he has persistent vomiting, persistent epigastric pain/regurgitation or if he develops shortness of breath/wheezing Discharge - Discharge Information Problems reviewed: Yes Clinical Impression/Diagnosis: GERD (gastroesophageal reflux disease) Qualifiers: Esophagitis presence: esophagitis presence not specified Qualified Code(s): K21.9 - Gastro-esophageal reflux disease without esophagitis Headache Qualifiers: Headache type: unspecified Headache chronicity pattern: acute headache Condition: Stable Disposition: HOME - Follow up/Referral Referrals: Eliza Queen MD [Primary Care Provider] - - Patient Discharge Instructions Patient Printed Discharge Instructions: DI for Gastritis Additional Instructions: Drink plenty of fluids Prilosec 40 mg daily Avoid foods that trigger your reflux symptoms Tylenol as needed for headache Follow-up with within 1 to 2 days Return to ER if you have shortness of breath, high fever (measured), wheezing or persistent vomiting - Post Discharge Activity
[2020-01-16 06:31] VITALS: BP 130/76; PULSE 108; TEMP 98.4; BMI 25.0
[2020-01-16] MEDS ORDERED: ACETAMINOPHEN 500 MG TABLET (FP) PO ONE (06:35)
[2020-01-16] MEDS ORDERED: ACETAMINOPHEN 500 MG TABLET (FP) ONE (06:37)
[2020-01-16] MEDS ORDERED: PANTOPRAZOLE 40 MG TABLET PO ONE (06:45)
[2020-01-16] MEDS ORDERED: PANTOPRAZOLE 40 MG TABLET ONE (06:46)
== END 2020-01-16 06:55 | disposition home or self-care (01) ==
LOC: FER 06:24
DX: K21.9 Gastro-esophageal reflux disease without esophagitis (principal); R51 Headache; F17.210 Nicotine dependence, cigarettes, uncomplicated
CPT/HCPCS: 99283-25

== ENCOUNTER 2020-01-16 16:42 | Emergency (ER) | payer OTHER ==
[2020-01-16 16:56] VITALS: BMI 25.0
--- NOTE | 2020-01-16 17:48 | PDOC ---
History of Present Illness - General Chief Complaint: Respiratory Stated Complaint: RESPIRATORY Time Seen by Provider: 01/16/20 16:50 History Source: Patient Exam Limitations: No Limitations - History of Present Illness Initial Comments: 01/16/20 19:27 39 year old male, with a significant past medical history of GERD, who presents to the emergency department with 1 days of cough, headache, and generalized weakness with URI like symptoms that have been occurring for the past 14 days. Per the patient, he has had concurrent nausea and vomiting with associative diarrhea for the past 2 days. The patient denies pain, but endorses generalized weakness. Past History - Past Medical History Allergies/Adverse Reactions: Allergies Allergy/AdvReac Type Severity Reaction Status Date / Time No Known Allergies Allergy Verified 01/16/20 06:25 Home Medications: Ambulatory Orders Omeprazole 40 mg PO DAILY #30 tablet. 01/16/20 Anemia: No Asthma: No Cancer: No Cardiac Disorders: No CVA: No COPD: No CHF: No DVT: No Dementia: No Diabetes: No Dialysis: No GI Disorders: No Disorders: No HTN: No Hypercholesterolemia: No Kidney Stones: No Liver Disease: No Psychiatric Problems: No Seizures: No Thyroid Disease: No Lung CA: No Other medical history: DENIES - Immunization History Immunization Up to Date: Yes - Psycho Social/Smoking Cessation Hx Smoking Status: No Smoking History: Current every day smoker Have you smoked in the past 12 months: No Number of Cigarettes Smoked Daily: 20 If you are a former smoker, when did you quit?: 11/28/18 Information on smoking cessation initiated: No 'Breaking Loose' booklet given: 01/06/20 Hx Alcohol Use: No Drug/Substance Use Hx: No Substance Use Type: None Hx Substance Use Treatment: No Review of Systems - Review of Systems Able to Perform ROS?: Yes Is the patient limited Kinyarwanda proficient: No Constitutional: Yes: Fever, Weakness. No: Chills, Diaphoresis HEENTM: No: Eye Pain, Ear Pain, Nose Pain, Throat Pain, Mouth Pain Respiratory: Yes: Cough Cardiac (ROS): No: Chest Pain, Lightheadedness, Palpitations, Chest Tightness ABD/GI: Yes: Diarrhea, Nausea, Vomiting. No: Constipated, Rectal Bleeding, Tarry Stools : Yes: Dysuria. No: Burning, Hematuria Musculoskeletal: No: Back Pain, Joint Pain, Neck Pain Integumentary: No: Bruising, Erythema, Rash Neurological: Yes: Headache. No: Numbness, Tingling, Tremors Psychiatric: No: Change in Appetite Endocrine: No: Unexplained Weight Loss Hematologic/Lymphatic: No: Anemia *Physical Exam - Vital Signs Last Vital Signs Temp Pulse Resp BP Pulse Ox 100.2 F H 109 H 18 124/79 98 01/16/20 16:43 01/16/20 16:43 01/16/20 16:43 01/16/20 16:43 01/16/20 16:43 - Physical Exam General Appearance: Yes: Nourished, Appropriately Dressed. No: Apparent Distress, Intoxicated HEENT: positive: EOMI, JOBY, Normal Voice, Symmetrical, TMs Normal, Pharyngeal Erythema, Hearing Grossly Normal. negative: Pharynx Normal, Pale Conjunctivae, Scleral Icterus (R), Scleral Icterus (L), Muffled/Hoarse voice, Tonsillar Exudate, Tonsillar Erythema, Nasal Congestion, Rhinorrhea, Sinus Tenderness, Excessive drooling Neck: positive: Trachea midline, Supple. negative: Tender, Lymphadenopathy (R) , Lymphadenopathy (L), Tender lateral, Tender midline Respiratory/Chest: positive: Lungs Clear, Normal Breath Sounds. negative: Chest Tender, Respiratory Distress, Accessory Muscle Use, Crackles, Rales, Rhonchi, Stridor, Wheezing Cardiovascular: positive: Regular Rhythm, S1, S2, Tachycardia. negative: Systolic Murmur Gastrointestinal/Abdominal: positive: Normal Bowel Sounds, Flat, Soft. negative : Tender Lymphatic: negative: Adenopathy Musculoskeletal: positive: Normal Inspection. negative: CVA Tenderness, Vertebral Tenderness Extremity: positive: Normal Capillary Refill, Normal Inspection, Normal Range of Motion. negative: Tender, Swelling, Calf Tenderness Integumentary: positive: Normal Color, Dry, Warm Neurologic: positive: Fully Oriented, Alert, Normal Mood/Affect ED Treatment Course - LABORATORY CBC & Chemistry Diagram: 01/16/20 18:40 01/16/20 18:40 Medical Decision Making - Medical Decision Making 39 year old male, with a significant past medical history of GERD, who presents to the emergency department with 1 days of cough, headache, and generalized weakness with URI like symptoms that have been occurring for the past 14 days. Initial vitals: Initial Vital Signs Temp Pulse Resp BP Pulse Ox 100.2 F H 109 H 18 124/79 98 01/16/20 16:43 01/16/20 16:43 01/16/20 16:43 01/16/20 16:43 01/16/20 16:43 Work up: patient presents with low grade fever with generalized weakness with dysuria, N/ V/D and headache consistent with viral infection vs influenza vs pNA vs UTI. Laboratory Tests 01/16/20 01/16/20 01/16/20 18:40 18:40 18:40 WBC 4.6 RBC 4.96 Hgb 15.2 Hct 44.4 MCV 89.5 MCH 30.6 MCHC 34.2 RDW 11.5 L Plt Count 140 D MPV 9.7 D Absolute Neuts (auto) 3.5 Neutrophils % 76.9 D Lymphocytes % 14.1 D Monocytes % 8.4 Eosinophils % 0.3 D Basophils % 0.3 PT with INR 15.6 H INR 1.40 H PTT (Actin FS) 27.1 Sodium Potassium Chloride Carbon Dioxide Anion Gap BUN Creatinine Est GFR (CKD-EPI)AfAm Est GFR (CKD-EPI)NonAf Random Glucose Lactic Acid Calcium Total Bilirubin AST ALT Alkaline Phosphatase Troponin I < 0.03 Total Protein Albumin Urine Color Urine Appearance Urine pH Urine Protein Urine Glucose (UA) Urine Ketones Urine Blood Urine Nitrite Urine Bilirubin Urine Urobilinogen Ur Leukocyte Esterase Urine RBC Urine WBC Urine Bacteria Influenza A (Rapid) Influenza B (Rapid) 01/16/20 01/16/20 01/16/20 18:40 18:40 18:40 WBC RBC Hgb Hct MCV MCH MCHC RDW Plt Count MPV Absolute Neuts (auto) Neutrophils % Lymphocytes % Monocytes % Eosinophils % Basophils % PT with INR INR PTT (Actin FS) Sodium 133 L Potassium 3.6 Chloride 99 Carbon Dioxide 26 Anion Gap 8 BUN 18.0 Creatinine 0.8 Est GFR (CKD-EPI)AfAm 128.60 Est GFR (CKD-EPI)NonAf 110.96 Random Glucose 105 Lactic Acid 1.0 Calcium 8.6 Total Bilirubin 0.8 AST 21 ALT 16 Alkaline Phosphatase 47 Troponin I Total Protein 6.6 Albumin 3.8 Urine Color Urine Appearance Urine pH Urine Protein Urine Glucose (UA) Urine Ketones Urine Blood Urine Nitrite Urine Bilirubin Urine Urobilinogen Ur Leukocyte Esterase Urine RBC Urine WBC Urine Bacteria Influenza A (Rapid) Negative Influenza B (Rapid) Negative 01/16/20 20:40 WBC RBC Hgb Hct MCV MCH MCHC RDW Plt Count MPV Absolute Neuts (auto) Neutrophils % Lymphocytes % Monocytes % Eosinophils % Basophils % PT with INR INR PTT (Actin FS) Sodium Potassium Chloride Carbon Dioxide Anion Gap BUN Creatinine Est GFR (CKD-EPI)AfAm Est GFR (CKD-EPI)NonAf Random Glucose Lactic Acid Calcium Total Bilirubin AST ALT Alkaline Phosphatase Troponin I Total Protein Albumin Urine Color Yellow Urine Appearance Clear Urine pH 7.0 Urine Protein Negative Urine Glucose (UA) Negative Urine Ketones Negative Urine Blood 2+ H Urine Nitrite Negative Urine Bilirubin Negative Urine Urobilinogen 1.0 Ur Leukocyte Esterase Negative Urine RBC 5-10 Urine WBC 0-2 Urine Bacteria Few Influenza A (Rapid) Influenza B (Rapid) Patient was signed out to Dr. Mcgrath for further care and management at the time of sign out. Discharge - Discharge Information Problems reviewed: Yes Clinical Impression/Diagnosis: Viral syndrome, Dehydration - Additional Discharge Information Prescriptions: Omeprazole 40 mg PO DAILY #30 tablet.dr - Follow up/Referral - Patient Discharge Instructions Patient Printed Discharge Instructions: DI for Dehydration -- Adult Additional Instructions: rest, drink plenty of fluids light diet as discussed continue omeprazole as prescribed (40 mg daily) Follow-up with within the next 5 days Return to ER if you have persistent vomiting or experience severe pain/fever - Post Discharge Activity
[2020-01-16] MEDS ORDERED: SODIUM CHLORIDE 2,177 ML IV ONE (18:35)
[2020-01-16] MEDS ORDERED: ACETAMINOPHEN 1000 MG/100 ML VIAL (NON FORMULARY) IVPB ONE (18:36)
[2020-01-16] MEDS ORDERED: ACETAMINOPHEN INJECTION 100 ML IVPB ONE (18:45)
[2020-01-16 19:03] LABS: BASO % 0.3 % (0-2.0); EOS % 0.3 % (0-4.5); HEMATOCRIT 44.4 % (35.4-49); HEMOGLOBIN 15.2 GM/dl (11.7-16.9); LYMPH % 14.1 % (8-40); MCH 30.6 pg (25.7-33.7); MCHC 34.2 g/dl (32.0-35.9); MEAN CELL VOLUME 89.5 fl (80-96); MEAN PLT VOLUME 9.7 fl (7.5-11.1); MONO % 8.4 % (3.8-10.2); NEUT % 76.9 % (42.8-82.8); PLATELET COUNT 140 K/MM3 (134-434); RBC 4.96 M/mm3 (4.00-5.60); RDW 11.5 % (11.9-15.9); WHITE BLOOD COUNT 4.6 K/mm3 (4.0-10.8)
[2020-01-16 19:11] LABS: ACTIVATED PTT 27.1 SECONDS (25.2-36.5)
[2020-01-16 19:14] LABS: ALBUMIN 3.8 g/dl (3.4-5.0); BILIRUBIN,TOTAL 0.8 mg/dl (0.2-1); CALCIUM 8.6 mg/dl (8.5-10); CREATININE 0.8 mg/dl (0.55-1.3); POTASSIUM 3.6 mmol/L (3.5-5.1); TOT PROT 6.6 g/dl (6.4-8.2)
[2020-01-16 19:15] LABS: INR 1.4 (0.82-1.09); PROTHROMBIN TIME (PATIENT) 15.6 SEC (10.2-13.0)
[2020-01-16 19:32] VITALS: PULSE 94
[2020-01-16 19:33] VITALS: BP 118/72; TEMP 98.7
--- NOTE | 2020-01-16 20:16 | PDOC ---
Attending Attestation - Resident Resident Name: Dannie Gonzales - ED Attending Attestation I have performed the following: I have examined & evaluated the patient, The case was reviewed & discussed with the resident, I agree w/resident's findings & plan, Exceptions are as noted - HPI HPI: 01/16/20 20:14 Fever, nonproductive cough, nausea, vomiting, diarrhea for 2 days. - Physicial Exam PE: 01/16/20 20:15 Alert and oriented no acute distress cooperative. Temperature 100.2. No tachypnea or dyspnea. Respiratory rate and oxygen saturation levels are normal. Afebrile blood pressure and heart rate normal. Mild pharyngeal injection without discharge, exudate, swelling, or mass No adenopathy Neck supple Lungs clear with full breath sounds bilaterally, no wheezes rales or rhonchi CV regular with no murmur rubs or gallops Abdomen nondistended, bowel sounds normal, soft without mass tenderness organomegaly Skin turgor adequate, mucous membranes moist Neurological intact Impression: Low-grade fever, constitutional symptoms suggestive of flu or other viral infection, rule out pneumonia, rule out UTI Plan: Chest x-ray is clear. White blood count normal. Remainder of CBC and chemistries with no significant abnormalities. Urinalysis pending. 01/16/20 20:17 - Medical Decision Making 01/17/20 07:22 Assessment: Low-grade fever, no definite source of infection. ENT is clear. Lungs are clear. Urine is pending. Plan: Signed out to Dr. Duenas at 9 PM pending results of urinalysis. Remainder of work-up so far is negative including flu swab. Hemodynamically and clinically stable, in no distress respiratory or otherwise, temperature is down , in the normal range.
--- NOTE | 2020-01-16 21:10 | PDOC ---
*Physical Exam - Vital Signs Last Vital Signs Temp Pulse Resp BP Pulse Ox 98.7 F 94 H 14 118/72 97 01/16/20 19:32 01/16/20 19:33 01/16/20 19:32 01/16/20 19:32 01/16/20 19:33 ED Treatment Course - LABORATORY CBC & Chemistry Diagram: 01/16/20 18:40 01/16/20 18:40 - ADDITIONAL ORDERS Additional order review: Laboratory Results 01/16/20 01/16/20 01/16/20 20:40 18:40 18:40 PT with INR INR PTT (Actin FS) Sodium 133 L Potassium 3.6 Chloride 99 Carbon Dioxide 26 Anion Gap 8 BUN 18.0 Creatinine 0.8 Est GFR (CKD-EPI)AfAm 128.60 Est GFR (CKD-EPI)NonAf 110.96 Random Glucose 105 Lactic Acid 1.0 Calcium 8.6 Total Bilirubin 0.8 AST 21 ALT 16 Alkaline Phosphatase 47 Troponin I Total Protein 6.6 Albumin 3.8 Urine Color Yellow Urine Appearance Clear Urine pH 7.0 Urine Protein Negative Urine Glucose (UA) Negative Urine Ketones Negative Urine Blood 2+ H Urine Nitrite Negative Urine Bilirubin Negative Urine Urobilinogen 1.0 Ur Leukocyte Esterase Negative 01/16/20 01/16/20 18:40 18:40 PT with INR 15.6 H INR 1.40 H PTT (Actin FS) 27.1 Sodium Potassium Chloride Carbon Dioxide Anion Gap BUN Creatinine Est GFR (CKD-EPI)AfAm Est GFR (CKD-EPI)NonAf Random Glucose Lactic Acid Calcium Total Bilirubin AST ALT Alkaline Phosphatase Troponin I < 0.03 Total Protein Albumin Urine Color Urine Appearance Urine pH Urine Protein Urine Glucose (UA) Urine Ketones Urine Blood Urine Nitrite Urine Bilirubin Urine Urobilinogen Ur Leukocyte Esterase 01/16/20 18:40 RBC 4.96 MCV 89.5 MCHC 34.2 RDW 11.5 L MPV 9.7 D Neutrophils % 76.9 D Lymphocytes % 14.1 D Monocytes % 8.4 Eosinophils % 0.3 D Basophils % 0.3 - Medications Given in the ED: ED Medications Discontinued Medications Generic Name Dose Route Start Last Admin Trade Name Freq PRN Reason Stop Dose Admin Acetaminophen 1,000 mg 01/16/20 18:36 01/16/20 18:57 Ofirmev Injection - IVPB 01/16/20 18:37 1,000 mg ONCE ONE Administration Sodium Chloride 2,177 mls @ 1,088.5 mls/hr 01/16/20 18:35 01/16/20 18:57 Normal Saline - 30 ml/kg infuse over 2 hr (2177 ml) 01/16/20 20:34 1,088.5 mls/hr IV Administration ONCE ONE ED Progress Note - Progress Note Progress Note: Care of this patient received from . Laboratory work-up was essentially normal except for evidence of mild prerenal azotemia suggesting dehydration. 2 L of normal saline IV hydration administered Results discussed with the patient; will be discharged with instructions to drink plenty of fluids but maintain a light diet for the next few days. He should continue his omeprazole as previously prescribed. He should follow-up with Dr. Queen within the next 5 days and return to the emergency room if he has any further vomiting, high fever or persistent pain Discharge - Discharge Information Problems reviewed: Yes Clinical Impression/Diagnosis: Viral syndrome, Dehydration Condition: Stable Disposition: HOME - Additional Discharge Information Prescriptions: Omeprazole 40 mg PO DAILY #30 tablet. - Follow up/Referral - Patient Discharge Instructions Patient Printed Discharge Instructions: DI for Dehydration -- Adult Additional Instructions: rest, drink plenty of fluids light diet as discussed continue omeprazole as prescribed (40 mg daily) Follow-up with within the next 5 days Return to ER if you have persistent vomiting or experience severe pain/fever - Post Discharge Activity
--- NOTE | 2020-01-17 14:21 | EKG ---
Test Reason : Blood Pressure : / mmHG Vent. Rate : 093 BPM Atrial Rate : 093 BPM P-R Int : 188 ms QRS Dur : 084 ms QT Int : 326 ms P-R-T Axes : 064 077 050 degrees QTc Int : 405 ms NORMAL SINUS RHYTHM NORMAL ECG WHEN COMPARED WITH ECG OF 03-APR-2019 15:33, NO SIGNIFICANT CHANGE WAS FOUND Confirmed by ANA ROSA HERBERT MD ([id number]) on 01/17/2020 2:20:59 PM Referred By: MD SMITH Confirmed By:ANA ROSA HERBERT MD
== END 2020-01-16 21:28 ==
LOC: FER 16:42
PROC: 3E033NZ Introduction of Analgesics, Hypnotics, Sedatives into Peripheral Vein, Percutaneous Approach (ICD-10-PCS; principal; 2020-01-16)
PROC: 3E0337Z Introduction of Electrolytic and Water Balance Substance into Peripheral Vein, Percutaneous Approach (ICD-10-PCS; 2020-01-16)
DX: B34.9 Viral infection, unspecified (principal); E86.0 Dehydration; K21.9 Gastro-esophageal reflux disease without esophagitis
CPT/HCPCS: 36415; 71045-TC-FY; 80053; 81003; 81015; 83605; 84484; 85025; 85610; 85730; 87040; 87086; 87804; 93005; 99285-25; J0131; J7030

== ENCOUNTER 2020-09-11 17:39 | Emergency (ER) | payer OTHER ==
[2020-09-11] MEDS ORDERED: IBUPROFEN 400 MG TABLET (FP) PO ONE ×2 (17:44→18:07)
[2020-09-11] MEDS ORDERED: DIPHTH,PERTUSS(ACELL),TET 0.5 ML DISP.SYRIN IM ONE ×2 (17:44→18:07)
[2020-09-11 17:45] VITALS: BP 130/87; PULSE 101; TEMP 98.1; BMI 28.1
--- NOTE | 2020-09-11 17:47 | PDOC ---
History of Present Illness - General Chief Complaint: Laceration Stated Complaint: I CUT MY FINGER Time Seen by Provider: 09/11/20 17:43 History Source: Patient Exam Limitations: No Limitations - History of Present Illness Initial Comments: 40 year old male with no self reported PMH presented to ED for laceration to right index finger since this AM. Pt reported he was feeling through his tool box with his right hand, when he unexpectedly cut his first finger on something sharp, pt is unsure of what he cut his hand on. Pt is unsure of last tetanus. Pt denied numbness, weakness, fever, chills, nausea, vomiting. ROS General: denied fever, chills, generalized weakness. HEENT: denied sore throat, rhinorrhea, ear pain. Cardiovascular: denied chest pain, palpitations, syncope, diaphoresis. Respiratory: denied shortness of breath, cough, sputum production, hemoptysis. Gastrointestinal: denied abdominal pain, nausea, vomiting, diarrhea, constipation, blood in stool. Genitourinary: denied dysuria, increased urinary frequency, hematuria, urinary incontinence, flank pain. Back: denied back pain. Musculoskeletal: admitted to right finger pain. Neurological: denied headache, dizziness, numbness, tingling, weakness. Integumentary: denied rash, laceration, abrasion. Hematologic/Lymphatic: denied bruising or bleeding. PE Constitutional: Well-nourished, Well-developed, appearing stated age. HEENT: head is normocephalic, atraumatic. EOMI. PERRLA. Neck: supple. Full ROM. Cardiovascular: regular heart rhythm. Normal S1 and S2. no murmurs. no pericardial friction rub. Respiratory: clear to auscultation bilaterally. no crackles, rhonchi or wheezing. no stridor. Gastrointestinal: soft, flat, nontender. normal bowel sounds. no rebound, guarding, or masses. Extremities: peripheral pulses intact and equal. no lower extremity edema noted. Neurological: CN 2-12 grossly intact. moves all four extremities. Psych: awake, alert, oriented x3. follows commands. answers questions appropriately. Right hand: first finger 3 cm laceration to the right first finger at the finger pad, no active bleeding, no visualized FB. intact ROM at the MCP/PIP/DIP. Past History - Medical History Allergies/Adverse Reactions: Allergies Allergy/AdvReac Type Severity Reaction Status Date / Time No Known Allergies Allergy Verified 09/11/20 17:47 Home Medications: Ambulatory Orders Cephalexin [Keflex] 500 mg PO QID 5 Days #12 capsule 09/11/20 - Immunization History Immunization Up to Date: Yes - Psycho-Social/Smoking History Smoking Status: No Smoking History: Current every day smoker Have you smoked in the past 12 months: No Number of Cigarettes Smoked Daily: 20 If you are a former smoker, when did you quit?: 11/28/18 'Breaking Loose' booklet given: 01/06/20 ED Treatment Course - RADIOLOGY Radiology Studies Ordered: Category Date Time Status FINGER(S) RIGHT [RAD] Stat Radiology 09/11/20 17:44 Ordered Medical Decision Making - Medical Decision Making 40 year old male with above PMH presented to ED for right index finger laceration occurring this AM. Initial Vital Signs Temp Pulse Resp BP Pulse Ox 98.1 F 101 H 19 130/87 97 09/11/20 17:41 09/11/20 17:41 09/11/20 17:41 09/11/20 17:41 09/11/20 17:41 Afebrile. Tachycardic. No tachypnea. No hypotension. No hypoxia on room air. XR right finger ordered for FB Motrin 400 mg PO once for pain Boostrix IM once for tetanus prophylaxis Wound repaired. Will DC on Keflex 500 mg QID x3 days since wound was left open since this AM, unknown source of injury. Return precautions given. Wound instructions given. Pt discharged. Discharge - Discharge Information Problems reviewed: Yes Clinical Impression/Diagnosis: Laceration of right index finger Qualifiers: Encounter type: initial encounter Damage to nail status: without damage Foreign body presence: without foreign body Qualified Code(s): S61.210A - Laceration without foreign body of right index finger without damage to nail, initial encounter Condition: Stable - Admission No - Additional Discharge Information Prescriptions: Cephalexin [Keflex] 500 mg PO QID 5 Days #12 capsule - Follow up/Referral - Patient Discharge Instructions Patient Printed Discharge Instructions: DI for Laceration Repair Additional Instructions: For the next 2 days you may use bacitracin or neosporin. To clean the wound wash with soap and water every day. Pat dry. After the next two days you may leave the wound open to air. Return to the Emergency Department if you develop redness around the wound, increased swelling, fevers, wound drainage, worsening symptoms, change in sensation/strength, increasing pain despite Tylenol use, chest pain, shortness of breath, numbness, weakness, visual changes, gait change s, weakness, dizziness or any other new, worsening or concerning symptoms. Return to the ER in 7 days for suture removal. Take Motrin over the counter for pain. Take as advised on label. Take with food. - Post Discharge Activity Work/Back to School Note: Back to Work Laceration/Wound Repair - Laceration/Wound Repair Right Finger 1st digit Wound Length (cm): 2 cm Depth, Shape: superficial Irrigated w/ Saline: Yes Betadine Prep: Yes Anesthesia: 1% Lidocaine Wound Debrided: minimal Wound Repaired With: Sutures Suture Size/Type: 5:0 Sterile Dressing Applied: Yes Remarks: 4 sutures placed to palmar surface of right index distal phalange. No active bleeding. Covered with bacitracin + gauze.
--- OUTSIDE RECORDS SUMMARY | 2020-09-11 17:50 | XMS ---
:1980 Author Organization [facility] Support Name Relationship Address Phone SE Unavailable Unavailable Unavailable [employer]OWE[employer]HER [address] [facility] [place] [address] Re-disclosure Warning The records that you are about to access may contain information from federally- assisted alcohol or drug abuse programs. If such information is present, then the following federally mandated warning applies: This information has been disclosed to you from records protected by federal confidentiality rules (42 CFR part 2). The federal rules prohibit you from making any further disclosure of this information unless further disclosure is expressly permitted by the written consent of the person to whom it pertains or as otherwise permitted by 42 CFR part 2. A general authorization for the release of medical or other information is NOT sufficient for this purpose. The Federal rules restrict any use of the information to criminally investigate or prosecute any alcohol or drug abuse patient.The records that you are about to access may contain highly sensitive health information, the redisclosure of which is protected by Article 27-F of the [facility] Public Health law. If you continue you may haveaccess to information: Regarding HIV / AIDS; Provided by facilities licensed or operated by the [facility] Office of Mental Health; or Provided by the [facility] Office for People With Developmental Disabilities. If such information is present, then the following [facility] mandated warning applies: This information has been disclosed to you from confidential records which are protected by state law. State law prohibits you from making any further disclosure of this information without the specific written consent of the person to whom it pertains, or as otherwise permitted by law. Any unauthorized further disclosure in violation of state law may result in a fine or fdc sentence or both. A general authorization for the release of medical or other information is NOT sufficient authorization for further disclosure. Insurance Providers Payer name Policy type Policy ID Covered Covered democrat's Policy P kim / Coverage democrat ID relationship to [employer] ormation type ur[employer] MARIO [id number] SP [id number] 600 HEALTH NON CAP MARIO [id number] SP [id number] 600 HEALTH NON CAP Results ID Date Data Source [id number] 09/03/2020 12:00:00 AM EDT [facility] Name Value Range Interpretation Code Description Data Brenda rce(s) Supporting Document(s ) SARS-COV-2 [facility] QL ALEN+PROBE This lab was ordered by MARLON SOUTH MD and reported by [email or web address] [facility]. ID Date Data Source [id number] 09/06/2020 10:24:00 AM EDT [facility] FASTING: UNKNOWNReceived: 09/04/2020 at 07:13:00 QTE: [address], [place], [id number], Paul Celestin MD Received: 09/04/2020 at 07:13:00 QTE : [address], [place], [id number], Paul Celestin MD Name Value Range Interpretation Code Description Data Brenda rce(s) Supporting Document(s ) SARS CoV 2 Normal (applies to [facility] IGG non-numeric Diagnostics results) Reference range: NegativeThis test is in tended for use as an aid in identifyingindividuals with an adaptive immune response [id number] , indicating recent or prior infection.Results are for the detection of SARS-CoV-2 antibodies.I gG antibodies to SARS-CoV-2 are generally detectablein blood several days after initial infecti on, althoughthe duration of time antibodies are present post-infectionis not well characterized. At this time, it is unknownfor how long antibodies persist following infectionand if the pr esence of antibodies confers protectiveimmunity. Individuals may have detectable virus by molecular testing present for several weeks followingseroconversion. Negative result s do not preclude epaszDPRE-TeJ-3 infection. This test should not be used todiagnose acute SARS -CoV-2 infection. If acute infectionis suspected, direct testing by molecular methods forS ARS-CoV-2 is necessary. False positive results for thetest may occur due to cross-reactivit y from pre-existingantibodies or other possible causes.Please review the Fact Sheets a vailable for healthcare providers and patients using the following websites:[employer]/home/Covid-19/HCP/antibody/fact-hiksl7JvbepUzghfgy tics.[employer]/home/C ovid-19/Patients/antibody/fact-qgkcs3Gys s test has been authorized by the FDA under anEmergency Use Authorization (EUA) for use by autho rizedlaboratorclarita. The FDA authorized labeling is availableon the [employer] websit e:www.[employer]/Covid19.For additional information please refer tohttp://educat ion.[employer]/faq/OND931(This link is being provided for informational/educationalpu rposes only.) ID Date Data Source [id number] 09/06/2020 10:24:00 AM EDT [facility] FASTING: UNKNOWNReceived: 09/04/2020 at 07:13:00 QTE: [place], [id number], Paul Celestin MD Received: 09/04/2020 at 07:13:00 QTE : [facility], [address], Paul Celestin MD Name Value Range Interpretation Description Data Source(s ) Supporting Code Document(s ) SARS CoV NOT DETECTED Normal (applies to [facility] 2 RNA non-numeric Diagnostics results) A Not Detected (negative) test result fo r this testmeans that SARS- CoV-2 RNA was not present in the specimenabove the limit of detection. A negative result does notrul e out the possibility of COVID-19 and should not beused as the sole basis for treatment or patient managementdecisions. If COVID-1 9 is still suspected, based onexposure history together with other clinical findings,re-testing should be considered in consultation wit [facility] health authorities. Laboratory test results shouldalways be considered in the context of clinicalobservations and epidemiological data in making a finaldiagnosis and patient management decisions.Please review the "Fact Sheets" and FDA authorizedlabeling avail able for health care providers andpatients using the following websites:https://www.[employer]/home/Covid-19/HCP/[facility]/fact-sheet. htmlhttps://www.[employer]/home/Covid-19/Patie nts/[facility]/fact-sheet.htmlThis test sparks s been authorized by the FDA under anEmergency Use Authorization (EUA) for use by authorizedlaboratories.Due to the [facility] public health emergency, [employer] is receiving a high volume of samples froma wide variety of swabs and media for COVID-19 testing.In order to serve patients during this public healthcrisis, samples from appropriate clinical sources arebeing tested. Negati ve test results derived fromspecimens received in non-commercially manufacturedviral collection and transport media, or in media andsamp le collection kits not yet authorized by FDA forCOVID-19 testing should be cautiously evaluated and thepatient potentially subjected to extra precautions suchas additional clinical monitoring, including collectionof an additional specimen.Methodology: Nucleic Acid Ampl ification Test (NAAT)includes RT-PCR or TMAAdditional information about COVID-19 can be foundat the [employer] website:www.[employer]/Covid19. Procedure
--- NOTE | 2020-09-11 18:01 | PDOC ---
Attending Attestation - Resident Resident Name: FredrickAyana - ED Attending Attestation I have performed the following: I have examined & evaluated the patient, The case was reviewed & discussed with the resident, I agree w/resident's findings & plan - HPI HPI: 09/11/20 18:00 healthy 40y/o M with R index finger laceration. sustained today on sharp object in glove compartment, no FB. no motor/sensory deficit. irrigated and presents for evaluation for stitches. unknown last dt. - Physicial Exam PE: 09/11/20 18:01 vss R hand: 2.5cm laceration along ventral aspect of index finger DIP, no FB and no deep tissue exposure. 5/5 flex/extend of MCP/PIP/DIP, brisk cap refill. - Medical Decision Making 09/11/20 18:02 40y/o M with R index finger laceration without deep tissue injury. nvi. irrigate and close update dT wound care precautions, return precautions brief course of ppx abx given dirty surface Discharge - Discharge Information Problems reviewed: Yes Clinical Impression/Diagnosis: Laceration of right index finger Qualifiers: Encounter type: initial encounter Damage to nail status: without damage Foreign body presence: without foreign body Qualified Code(s): S61.210A - Laceration without foreign body of right index finger without damage to nail, initial encounter Condition: Stable - Follow up/Referral - Patient Discharge Instructions - Post Discharge Activity
== END 2020-09-11 18:22 ==
LOC: FER 17:39
PROC: 0HQFXZZ Repair Right Hand Skin, External Approach (ICD-10-PCS; principal; 2020-09-11)
PROC: 3E0234Z Introduction of Serum, Toxoid and Vaccine into Muscle, Percutaneous Approach (ICD-10-PCS; 2020-09-11)
DX: S61.210A Laceration without foreign body of right index finger without damage to nail, initial encounter (principal)
CPT/HCPCS: 90715; 99284-25

== ENCOUNTER 2020-11-07 12:20 | Emergency (ER) | payer OTHER ==
[2020-11-07] MEDS ORDERED: KETOROLAC TROMETHAMINE 30 MG/1 ML VIAL IM ONE (12:26)
[2020-11-07 12:51] VITALS: BP 147/99; PULSE 66; TEMP 98.1; BMI 26.6
[2020-11-07] MEDS ORDERED: KETOROLAC TROMETHAMINE 30 MG/1 ML VIAL ONE (13:40)
== END 2020-11-07 13:55 | disposition home or self-care (01) ==
LOC: FER 12:20
PROC: 3E0233Z Introduction of Anti-inflammatory into Muscle, Percutaneous Approach (ICD-10-PCS; principal; 2020-11-07)
DX: T22.219A Burn of second degree of unspecified forearm, initial encounter (principal)
CPT/HCPCS: 99284-25

== ENCOUNTER 2021-01-17 23:36 | Emergency (ER) | payer OTHER ==
[2021-01-17 23:42] VITALS: BP 126/78; PULSE 86; TEMP 97.5; BMI 26.6
[2021-01-17] MEDS ORDERED: HYOSCYAMINE SULFATE 0.125 MG *ODT PO ONE (23:54)
[2021-01-17] MEDS ORDERED: MAG HYDROX/AL HYDROX/SIMETH 30 ML UNIT-DOSE CUP PO ONE (23:54)
[2021-01-17] MEDS ORDERED: MAG HYDROX/AL HYDROX/SIMETH 30 ML UNIT-DOSE CUP ONE (23:58)
[2021-01-17] MEDS ORDERED: HYOSCYAMINE SULFATE 0.125 MG *ODT ONE (23:58)
[2021-01-18 01:34] LABS: BASO % 0.6 % (0-2.0); EOS % 4.7 % (0-4.5); HEMATOCRIT 40.6 % (35.4-49); HEMOGLOBIN 14.1 GM/dL (11.7-16.9); LYMPH % 36.3 % (8-40); MCH 30.2 pg (25.7-33.7); MCHC 34.9 g/dl (32.0-35.9); MEAN CELL VOLUME 86.7 fl (80-96); MEAN PLT VOLUME 9.5 fl (7.5-11.1); MONO % 9.8 % (3.8-10.2); NEUT % 48.6 % (42.8-82.8); PLATELET COUNT 147 K/MM3 (134-434); RBC 4.68 M/mm3 (4.00-5.60); RDW 12.5 % (11.9-15.9); WHITE BLOOD COUNT 6.1 K/mm3 (4.0-10.0)
[2021-01-18 03:06] LABS: ALBUMIN 3.8 g/dl (3.4-5.0); BILIRUBIN,TOTAL 0.3 mg/dL (0.2-1); BLOOD UREA NITROGEN 30.6 mg/dL (7-18); CALCIUM 9.1 mg/dL (8.5-10.1); POTASSIUM 3.6 mmol/L (3.5-5.1); TOT PROT 6.8 g/dl (6.4-8.2)
== END 2021-01-18 02:00 | disposition home or self-care (01) ==
LOC: FER 23:36
DX: R10.9 Unspecified abdominal pain (principal)
CPT/HCPCS: 36415; 71045-TC-FY; 80053; 82550; 82553; 84484; 85025; 93005; 99285-25

== ENCOUNTER 2021-03-13 20:54 | Emergency (ER) | payer OTHER ==
[2021-03-13 20:59] VITALS: BP 128/77; PULSE 100; TEMP 98.9; BMI 26.6
[2021-03-15 07:06] LABS: SARS-CoV-2 NAA Not Detected (Not Detected)
== END 2021-03-13 21:12 | disposition home or self-care (01) ==
LOC: FER 20:54
DX: J06.9 Acute upper respiratory infection, unspecified (principal); Z11.52 Encounter for screening for COVID-19
CPT/HCPCS: 99283-25; C9803; U0003; U0005

== ENCOUNTER 2021-08-13 06:35 | Emergency (ER) | payer BC, OTHER ==
[2021-08-13] MEDS ORDERED: diphenhydrAMINE HCL 25 MG CAPSULE (FP) PO ONE (06:40)
[2021-08-13] MEDS ORDERED: predniSONE 20 MG TABLET (UD) PO ONE (06:40)
[2021-08-13] MEDS ORDERED: FAMOTIDINE 20 MG TABLET PO ONE (06:41)
[2021-08-13] MEDS ORDERED: predniSONE 20 MG TABLET (UD) ONE (06:47)
[2021-08-13] MEDS ORDERED: diphenhydrAMINE HCL 50 MG CAPSULE ONE (06:47)
[2021-08-13] MEDS ORDERED: FAMOTIDINE 20 MG TABLET ONE (06:47)
== END 2021-08-13 06:51 | disposition home or self-care (01) ==
LOC: FER 06:35
DX: T78.40XA Allergy, unspecified, initial encounter (principal)
CPT/HCPCS: 99283-25

== ENCOUNTER 2021-10-31 05:24 | Emergency (ER) | payer BC ==
[2021-10-31 05:35] VITALS: BP 104/50; PULSE 90; TEMP 100.5; BMI 26.6
[2021-10-31] MEDS ORDERED: ACETAMINOPHEN 500 MG TABLET (FP) ONE (05:55)
[2021-10-31] MEDS ORDERED: ACETAMINOPHEN 500 MG TABLET (FP) PO ONE (05:55)
== END 2021-10-31 06:02 | disposition home or self-care (01) ==
LOC: FER 05:24
DX: R53.81 Other malaise (principal); R50.9 Fever, unspecified
CPT/HCPCS: 99283-25

== ENCOUNTER 2022-02-15 09:08 | Emergency (ER) | payer BC ==
[2022-02-15 09:25] VITALS: BP 148/95; PULSE 85; TEMP 97.7; BMI 28.1
[2022-02-15] MEDS ORDERED: IBUPROFEN 600 MG TABLET (FP) PO ONE (09:30)
== END 2022-02-15 10:17 | disposition home or self-care (01) ==
LOC: FER 09:08
DX: S61.212A Laceration without foreign body of right middle finger without damage to nail, initial encounter (principal); W26.8XXA Contact with other sharp object(s), not elsewhere classified, initial encounter
CPT/HCPCS: 73140-TC-RT-FY; 99283-25

== ENCOUNTER 2022-02-23 20:15 | Emergency (ER) | payer BC ==
[2022-02-23 20:30] VITALS: BP 122/70; PULSE 78; TEMP 97.8; BMI 27.3
[2022-02-23] MEDS ORDERED: KETOROLAC TROMETHAMINE 60 MG/2 ML VIAL IM ONE (20:35)
[2022-02-23] MEDS ORDERED: KETOROLAC TROMETHAMINE 60 MG/2 ML VIAL ONE (20:41)
== END 2022-02-23 21:51 | disposition home or self-care (01) ==
LOC: FER 20:15
PROC: 3E023GC Introduction of Other Therapeutic Substance into Muscle, Percutaneous Approach (ICD-10-PCS; principal; 2022-02-23)
DX: S80.12XA Contusion of left lower leg, initial encounter (principal); W22.8XXA Striking against or struck by other objects, initial encounter
CPT/HCPCS: 93971-TC; 99284-25

== ENCOUNTER 2023-08-09 17:19 | Emergency (ER) | payer BC ==
[2023-08-09 17:32] VITALS: BP 138/90; PULSE 113; RESP 18; TEMP 99; BMI 26.6
[2023-08-09] MEDS ORDERED: IBUPROFEN 400 MG TABLET (FP) PO ONE ×2 (18:21→18:51)
[2023-08-09] MEDS ORDERED: ACETAMINOPHEN 1000 MG/100 ML BAG IVPB ONE (18:30)
[2023-08-09] MEDS ORDERED: SODIUM CHLORIDE 1,000 ML IV ONE (18:30)
[2023-08-09] MEDS ORDERED: ACETAMINOPHEN INJECTION 100 ML IVPB ONE (18:51)
== END 2023-08-09 19:33 | disposition home or self-care (01) ==
LOC: FER 17:19
PROC: 3E033NZ Introduction of Analgesics, Hypnotics, Sedatives into Peripheral Vein, Percutaneous Approach (ICD-10-PCS; principal; 2023-08-09)
PROC: 3E0337Z Introduction of Electrolytic and Water Balance Substance into Peripheral Vein, Percutaneous Approach (ICD-10-PCS; 2023-08-09)
DX: R50.9 Fever, unspecified (principal); R53.83 Other fatigue; M79.10 Myalgia, unspecified site; R19.7 Diarrhea, unspecified; R00.0 Tachycardia, unspecified; R11.10 Vomiting, unspecified; R51.9 Headache, unspecified; Z20.822 Contact with and (suspected) exposure to COVID-19
CPT/HCPCS: 0241U-QW; 99284-25

== ENCOUNTER 2024-06-01 11:58 | Emergency (ER) | payer BC, OTHER ==
[2024-06-01 12:19] VITALS: BP 124/69; PULSE 66; RESP 16; TEMP 97.8; BMI 26.6
[2024-06-01] MEDS ORDERED: ACETAMINOPHEN 325 MG TABLET (FP) ONE (12:48)
[2024-06-01] MEDS: ACETAMINOPHEN 325 MG TABLET (FP) PO ONE (12:50)
== END 2024-06-01 13:27 | disposition home or self-care (01) ==
LOC: FER 11:58
DX: M25.561 Pain in right knee (principal); M25.562 Pain in left knee; V03.10XA Pedestrian on foot injured in collision with car, pick-up truck or van in traffic accident, initial encounter; Y99.0 Civilian activity done for income or pay
CPT/HCPCS: 73562-TC-LT-FY; 73562-TC-RT-FY; 99284-25

== ENCOUNTER 2025-02-23 03:10 | Emergency (ER) | payer BC ==
[2025-02-23 03:25] VITALS: BP 135/93; TEMP 98; BMI 29.7
[2025-02-23] MEDS ORDERED: LORazepam 2 MG/ML SDV VIAL ONE ×2 (03:28→03:54)
[2025-02-23] MEDS: LORazepam 2 MG/ML SDV VIAL IVPUSH ONE (03:36)
[2025-02-23] MEDS: LACTATED RINGERS SOLUTION 1000 ML INFUS.BAG IV ONE (06:08)
[2025-02-23 06:44] LABS: POTASSIUM 3.6 mmol/L (3.5-5.1)
[2025-02-23 06:48] LABS: ALBUMIN 4.3 g/dl (3.4-5.0); BLOOD UREA NITROGEN 31.9 mg/dL (7-18); CALCIUM 9.1 mg/dL (8.5-10.1)
[2025-02-23 06:51] LABS: CREATININE 1.2 mg/dL (0.55-1.3)
[2025-02-23 06:52] VITALS: PULSE 89; RESP 16
[2025-02-23 06:53] LABS: BILIRUBIN,TOTAL 0.9 mg/dL (0.2-1); TOT PROT 7.2 g/dl (6.4-8.2)
[2025-02-23 07:23] LABS: ABSOLUTE IMMATURE GRANULOCYTES 0.03 x10^3/uL (0.0-0.031); BASOPHILS # 0.02 x10^3/uL (0.01-0.08); HEMATOCRIT 42.9 % (40.1-51.0); HEMOGLOBIN 14.6 g/dL (13.7-17.5); MEAN CELL VOLUME 85.3 fl (79.0-92.2); MONOCYTE # 0.97 x10^3/uL (0.30-0.82); MONOCYTE % 11.3 % (5.3-12.2); PLATELET COUNT 180 x10^3/uL (163-337)
== END 2025-02-23 08:30 | disposition home or self-care (01) ==
LOC: JER 03:10
PROC: 3E033GC Introduction of Other Therapeutic Substance into Peripheral Vein, Percutaneous Approach (ICD-10-PCS; principal; 2025-02-23)
PROC: 3E033GC Introduction of Other Therapeutic Substance into Peripheral Vein, Percutaneous Approach (ICD-10-PCS; 2025-02-23)
DX: F14.929 Cocaine use, unspecified with intoxication, unspecified (principal); R00.0 Tachycardia, unspecified; F41.9 Anxiety disorder, unspecified
CPT/HCPCS: 36415; 80053; 84439; 84443; 85025; 93005; 93010; 99284-25

== ENCOUNTER 2025-07-30 20:12 | Emergency (ER) | payer BC ==
[2025-07-30 20:31] VITALS: BP 130/79; PULSE 84; RESP 18; TEMP 98.6; BMI 23.5
[2025-07-30] MEDS: LOPERAMIDE HCL 2 MG CAPSULE PO ONE (22:02)
[2025-07-30] MEDS ORDERED: FAMOTIDINE 20 MG/50 ML IVPB 20 MG/50 ML MG IVPB ONE (22:02)
[2025-07-30] MEDS ORDERED: LOPERAMIDE HCL 2 MG CAPSULE ONE (22:02)
[2025-07-30] MEDS: FAMOTIDINE 20 MG/50 ML IVPB 20 MG/50 ML MG IVPB ONE (22:02)
[2025-07-30] MEDS: SODIUM CHLORIDE 1,000 ML IV STA (22:04)
[2025-07-30 22:33] LABS: ABSOLUTE IMMATURE GRANULOCYTES 0.00 x10^3/uL (0.0-0.031); BASOPHILS # 0.01 x10^3/uL (0.01-0.08); EOSINOPHIL % 2.3 % (0.8-7.0); EOSINOPHILS # 0.11 x10^3/uL (0.04-0.54); MCHC 34.2 g/dl (32.3-36.5); MEAN CELL VOLUME 88.8 fl (79.0-92.2); MEAN PLT VOLUME 11.2 fl (9.4-12.4); MONOCYTE # 0.66 x10^3/uL (0.30-0.82); MONOCYTE % 13.8 % (5.3-12.2); RDW 11.9 % (12.1-15.9)
[2025-07-30 22:44] LABS: ALK PHOS 62.0 U/L (45-117); CO2 28.0 mmol/L (21-32); CREATININE 0.8 mg/dl (0.6-1.3); GLUCOSE,RANDOM 90.0 mg/dl (74-106); SGOT/AST 22.0 U/L (15-37); SGPT/ALT 35.0 U/L (7-52); TOT PROT 6.8 g/dl (6.4-8.2)
[2025-07-31 01:20] LABS: HCV DIAGNOSTIC IN-HOUSE W/RFLX NON-REACTIVE (NONREACTIVE)
[2025-07-31 01:21] LABS: HIV INTERPRETATION NEGATIVE (NEGATIVE)
== END 2025-07-30 23:33 | disposition home or self-care (01) ==
LOC: FER 20:12
PROC: 3E033GC Introduction of Other Therapeutic Substance into Peripheral Vein, Percutaneous Approach (ICD-10-PCS; principal; 2025-07-30)
DX: R19.7 Diarrhea, unspecified (principal); R10.11 Right upper quadrant pain; R10.12 Left upper quadrant pain; R10.31 Right lower quadrant pain; R10.32 Left lower quadrant pain
CPT/HCPCS: 36415; 80053; 85025; 86803; 87389; 99284-25